=== PATIENT | female | born 1955 | race Two or more races ===

== ENCOUNTER → 2022-11-23 | Outpatient (CLI) | payer OTHER ==
[2022-11-23 09:46] LABS: Basophils # (auto) 0 10 ^3/uL (0-0.2); Basophils % (auto) 0.2 % (0.0-2.0); Eosinophils # (auto) 0 10 ^3/uL (0-0.8); Hematocrit 40.6 % (36.0-46.0); Hemoglobin 13.4 g/dL (12.2-16.2); Lymphocytes # (auto) 1.3 10 ^3/uL (0.4-5.4); Lymphocytes % (auto) 7.8 % (10.0-50.0); Mean Corpuscular Hemoglobin 30.2 pg (28.0-32.0); Mean Corpuscular Volume 91.4 fL (80.0-100.0); Monocytes # (auto) 0.3 10 ^3/uL (0-1.3); Monocytes % (auto) 1.8 % (0.0-12.0); Neutrophils # (auto) 15.4 10 ^3/uL (1.6-8.6); Neutrophils % (auto) 90.2 % (37.0-80.0); Red Blood Cells 4.44 10^6/uL (4.0-5.20); Red Cell Distribution Width 13.6 % (11.8-14.3)
[2022-11-23 10:04] LABS: Urine Bacteria NONE SEEN /hpf (None Seen); Urine Blood Negative /uL (Negative); Urine Hyaline Cast FEW /lpf (0 - 2); Urine Specific Gravity 1.018 (1.001-1.035); Urine WBC 2 /hpf (0 - 5)
[2022-11-23 10:33] LABS: Anion Gap 6 (5-15); Carbon Dioxide 22 mmol/L (21-32); Chloride 104 mmol/L (98-107); Potassium 4.6 mmol/L (3.5-5.1); Sodium 132 mmol/L (136-145)
[2022-11-23 10:42] LABS: Alanine Aminotransferase 23 U/L (13-56); Albumin 3.5 g/dL (3.4-5.0); Alkaline Phosphatase 99 U/L (45-117); Aspartate Aminotransferase 18 U/L (15-37); BUN/Creatinine Ratio 33.9 (10.0-20.0); Bilirubin, Direct < 0.1 mg/dL (0-0.2); Bilirubin, Total 0.3 mg/dL (0.2-1.0); Blood Urea Nitrogen 40 mg/dL (7-18); Calcium 9.8 mg/dL (8.5-10.1); Cholesterol 227 mg/dL (< 200); GFR African American 59 mL/min; GFR Non-African American 48 mL/min; Glucose 265 mg/dL (74-106); HDL Cholesterol 42 mg/dL (40-59); LDL Cholesterol 151 mg/dL (< 100); Total Protein 8.6 g/dL (6.4-8.2); Triglycerides 184 mg/dL (< 150)
[2022-11-23 10:46] LABS: % Iron Saturation 25.9 % (15-50)
== END | disposition home or self-care (01) ==
LOC: LAB 09:15
PROVIDERS: ATTEND Family Medicine
DX: Z00.00 Encounter for general adult medical examination without abnormal findings (principal); E78.2 Mixed hyperlipidemia; E55.9 Vitamin D deficiency, unspecified; E11.65 Type 2 diabetes mellitus with hyperglycemia; R79.89 Other specified abnormal findings of blood chemistry; R79.9 Abnormal finding of blood chemistry, unspecified
CPT/HCPCS: 36415; 80053; 80061; 80076; 81001; 82306; 82607; 83036; 83540; 83550; 84443; 85025

== ENCOUNTER 2023-01-29 21:54 | Inpatient (IN) | payer OTHER ==
[~2023-01-29] VITALS: Ht 165.1 cm; Wt 65.0 kg
[2023-01-29 22:32] LABS: Basophils # (auto) 0.1 10 ^3/uL (0-0.2); Basophils % (auto) 0.9 % (0.0-2.0); Eosinophils # (auto) 0.4 10 ^3/uL (0-0.8); Eosinophils % (auto) 4.1 % (0.0-7.0); Hematocrit 41.6 % (36.0-46.0); Hemoglobin 14.1 g/dL (12.2-16.2); Lymphocytes # (auto) 2.7 10 ^3/uL (0.4-5.4); Lymphocytes % (auto) 29.2 % (10.0-50.0); Mean Corpuscular Hemoglobin 30.7 pg (28.0-32.0); Mean Corpuscular Volume 90.4 fL (80.0-100.0); Monocytes # (auto) 0.5 10 ^3/uL (0-1.3); Monocytes % (auto) 5.4 % (0.0-12.0); Neutrophils # (auto) 5.6 10 ^3/uL (1.6-8.6); Neutrophils % (auto) 60.4 % (37.0-80.0); Nucleated Red Blood Cells % 0.1 %; Red Blood Cells 4.61 10^6/uL (4.0-5.20); Red Cell Distribution Width 14.3 % (11.8-14.3); White Blood Cell 9.3 10^3/uL (4.4-10.8)
[2023-01-29 22:46] LABS: INR 0.95 (0.9-1.15); Partial Thromboplastin Time 27.3 sec (24.6-33.4)
[2023-01-29 22:52] LABS: Albumin 3.6 g/dL (3.4-5.0); Calcium 8.5 mg/dL (8.5-10.1); Magnesium 2.1 mg/dL (1.6-2.6); Potassium 3.7 mmol/L (3.5-5.1)
[2023-01-29 22:56] LABS: BUN/Creatinine Ratio 31.6 (10.0-20.0); Bilirubin, Total 0.4 mg/dL (0.2-1.0); Total Protein 8.1 g/dL (6.4-8.2)
[2023-01-29] MEDS ORDERED: LABETALOL HCL 5 MG/ML 4ML SYRINGE IV ONE (23:45)
[2023-01-29] MEDS ORDERED: ASPirin 325 MG TAB PO ONE (23:45)
[2023-01-30] VITALS (7 sets, daily range): BP systolic 119–163; BP diastolic 62–78
[2023-01-30] MEDS ORDERED: LABETALOL HCL 5 MG/ML 4ML SYRINGE IV ONE (00:45)
[2023-01-30] MEDS ORDERED: ACETAMINOPHEN 325 MG TAB PO PRN (01:15)
[2023-01-30] MEDS ORDERED: MORPHINE SULFATE INJ 2 MG/ml SYRG IV PRN (01:15)
[2023-01-30] MEDS ORDERED: DEXTROSE (50%) 50ML SYRG IV PRN (01:15)
[2023-01-30] MEDS ORDERED: ONDANSETRON HCL 4 MG/2 ML VIAL IV PRN (01:15)
[2023-01-30] MEDS ORDERED: NITROGLYCERIN 0.4 MG SL TAB SL PRN (01:15)
[2023-01-30] MEDS: ACCU-CHEK COMFORT CURVE STRIP VI SCH ×3 (06:55→16:05)
[2023-01-30] MEDS: InsuLIN REG 1unit/0.01ml Soln (100units/ml) SC SCH ×3 (07:05→16:03)
[2023-01-30] MEDS ORDERED: ERGOCALCIFEROL 50,000 UNIT(1.25MG) CAP PO SCH (08:45)
[2023-01-30] MEDS ORDERED: PANTOPRAZOLE 40 MG TAB PO SCH (10:00)
[2023-01-30] MEDS ORDERED: ASPirin 81 mg TAB PO SCH ×2 (10:00)
[2023-01-30] MEDS ORDERED: CARVEDILOL 12.5 MG TAB PO SCH (10:00)
[2023-01-30] MEDS ORDERED: cloNIDine HCL 0.1 MG TAB PO SCH (10:00)
[2023-01-30] MEDS ORDERED: ENOXAPARIN SOD 40 MG/0.4 ML SYRINGE SC SCH (10:00)
[2023-01-30] MEDS ORDERED: GABA-1250 PO (11:50)
[2023-01-30] MEDS ORDERED: CLON0.1T PO (11:50)
[2023-01-30] MEDS ORDERED: ATOR10TA52 PO (13:05)
[2023-01-30] MEDS ORDERED: IODIXANOL 320MG/ML 100ML BTL IV ONE (13:32)
[2023-01-30] MEDS ORDERED: LIDOCAINE 2%HCL (LOCAL ANESTH.) INJ 20ML MDV ONE (13:32)
[2023-01-30] MEDS ORDERED: HEPARIN SODIUM (PORCINE) 5000 UNITS/ML 1ML VIAL ONE (13:48)
[2023-01-30] MEDS ORDERED: VERAPAMIL 2.5MG/ML INJ 2ML VIAL IV ONE (13:48)
[2023-01-30] MEDS ORDERED: fentaNYL CITRATE 100 MCG/2 ML VL ONE (13:48)
[2023-01-30] MEDS ORDERED: ANGIOMAX 250 MG VIAL IV ONE (13:48)
[2023-01-30] MEDS ORDERED: SODIUM CHL 0.9% 0 ML ONE (13:49)
[2023-01-30] MEDS ORDERED: MIDAZOLAM HCL 2MG/2ML 2ml VIAL (1mg/ml) ONE (13:49)
[2023-01-30] MEDS ORDERED: ASPI-325 PO (14:58)
[2023-01-30] MEDS ORDERED: ERGO1CAP23 PO (14:58)
[2023-01-30] MEDS ORDERED: ATOR20TA50 PO (14:58)
[2023-01-30] MEDS ORDERED: CAR125T PO (14:58)
[2023-01-30] MEDS ORDERED: LOSA25TA15 PO (14:58)
[2023-01-30 17:56] LABS: Alcohol, Urine < 3.0 mg/dL (0-10); Amphetamine Screen, Urine NEGATIVE (NEGATIVE); Barbiturate Scree,Urine NEGATIVE (NEGATIVE); Benzodiazephine Screen, Urine POSITIVE (NEGATIVE); Cannabinoid Screen, Urine NEGATIVE (NEGATIVE); Cocaine Screen, Urine NEGATIVE (NEGATIVE); Opiate Scree,Urine NEGATIVE (NEGATIVE); Phencyclidine Screen, Urine NEGATIVE (NEGATIVE)
[2023-01-30 18:10] LABS: Urine Bacteria FEW /hpf (None Seen); Urine Blood Negative /uL (Negative); Urine Specific Gravity 1.021 (1.001-1.035); Urine WBC 11 /hpf (0 - 5)
[2023-01-30] MEDS ORDERED: ATORVASTATIN 20 MG TAB PO SCH ×2 (22:00)
== END 2023-01-30 19:10 | disposition home or self-care (01) | DRG 281 ==
LOC: ER 21:58 → TELE 01-30 01:28 → TELE-CENTR 01-30 11:45
PROVIDERS: ADMIT Nurse Practitioner; ATTEND Internal Medicine
PROC: 4A023N7 Measurement of Cardiac Sampling and Pressure, Left Heart, Percutaneous Approach (ICD-10-PCS; principal; 2023-01-30)
PROC: B211YZZ Fluoroscopy of Multiple Coronary Arteries using Other Contrast (ICD-10-PCS; 2023-01-30)
DX: I21.4 Non-ST elevation (NSTEMI) myocardial infarction (principal); I16.1 Hypertensive emergency; I50.30 Unspecified diastolic (congestive) heart failure; E11.9 Type 2 diabetes mellitus without complications; I25.10 Atherosclerotic heart disease of native coronary artery without angina pectoris; I11.0 Hypertensive heart disease with heart failure; Z79.899 Other long term (current) drug therapy; Z86.73 Personal history of transient ischemic attack (TIA), and cerebral infarction without residual deficits; Z91.148 Patient's other noncompliance with medication regimen for other reason; Z91.199 Patient's noncompliance with other medical treatment and regimen due to unspecified reason
CPT/HCPCS: 36415; 71045; 80053; 80307; 81001; 82043; 82962; 83735; 83880; 84484; 85025; 85610; 85730; 93005; 93306; 96374; 96375; 96376; 99152; 99291; G0378; J1815; J2250; J2405; J3490; Q9967

== ENCOUNTER → 2023-02-14 | Outpatient (CLI) | payer OTHER ==
[~2023-02-14] MED LIST: ASPI-325 PO; ATOR20TA50 PO; CAR125T PO; ERGO1CAP23 PO; LOSA25TA15 PO
[2023-02-14 11:48] LABS: Urine WBC None Seen /hpf (0 - 5)
[2023-02-14 12:03] LABS: Basophils # (auto) 0.1 10 ^3/uL (0-0.2); Basophils % (auto) 0.6 % (0.0-2.0); Eosinophils # (auto) 0.3 10 ^3/uL (0-0.8); Eosinophils % (auto) 2.4 % (0.0-7.0); Hematocrit 35.4 % (36.0-46.0); Hemoglobin 11.6 g/dL (12.2-16.2); Lymphocytes # (auto) 2.9 10 ^3/uL (0.4-5.4); Lymphocytes % (auto) 22.1 % (10.0-50.0); Mean Corpuscular Hemoglobin 30.2 pg (28.0-32.0); Mean Corpuscular Hgb Conc. 32.8 g/dL (32.0-36.0); Monocytes # (auto) 0.6 10 ^3/uL (0-1.3); Monocytes % (auto) 4.6 % (0.0-12.0); Neutrophils # (auto) 9.3 10 ^3/uL (1.6-8.6); Neutrophils % (auto) 70.3 % (37.0-80.0); Red Blood Cells 3.85 10^6/uL (4.0-5.20); Red Cell Distribution Width 14.1 % (11.8-14.3); White Blood Cell 13.2 10^3/uL (4.4-10.8)
[2023-02-14 12:32] LABS: Folate (Folic Acid) 10.05 ng/mL (5.38-24)
[2023-02-14 12:36] LABS: % Iron Saturation 22.9 % (15-50)
[2023-02-14 12:37] LABS: Albumin 3.2 g/dL (3.4-5.0); Calcium 8.2 mg/dL (8.5-10.1); Potassium 4.1 mmol/L (3.5-5.1); Uric Acid 6.6 mg/dL (2.6-6.0)
[2023-02-14 12:41] LABS: BUN/Creatinine Ratio 24.8 (10.0-20.0); Bilirubin, Total 0.4 mg/dL (0.2-1.0); Phosphorus 2.7 mg/dL (2.5-4.90); Total Protein 6.8 g/dL (6.4-8.2)
[2023-02-14 12:49] LABS: Urine Bacteria NONE SEEN /hpf (None Seen); Urine Blood Negative /uL (Negative); Urine Specific Gravity 1.005 (1.001-1.035)
== END | disposition home or self-care (01) ==
LOC: LAB 11:33
PROVIDERS: ATTEND Family Medicine
DX: I10 Essential (primary) hypertension (principal); E78.2 Mixed hyperlipidemia; E11.65 Type 2 diabetes mellitus with hyperglycemia; N28.9 Disorder of kidney and ureter, unspecified; M79.605 Pain in left leg; R29.6 Repeated falls
CPT/HCPCS: 36415; 80053; 80061; 80069; 81001; 82607; 82746; 83036; 83540; 83550; 84403; 84443; 84550; 85025; 87086

== ENCOUNTER → 2023-02-26 | Outpatient (CLI) | payer OTHER ==
[2023-02-26 16:13] LABS: Basophils # (auto) 0.1 10 ^3/uL (0-0.2); Basophils % (auto) 0.7 % (0.0-2.0); Eosinophils # (auto) 0.2 10 ^3/uL (0-0.8); Eosinophils % (auto) 1.7 % (0.0-7.0); Hematocrit 35.6 % (36.0-46.0); Hemoglobin 11.8 g/dL (12.2-16.2); Lymphocytes # (auto) 2.6 10 ^3/uL (0.4-5.4); Lymphocytes % (auto) 24.2 % (10.0-50.0); Mean Corpuscular Hemoglobin 30.6 pg (28.0-32.0); Mean Corpuscular Hgb Conc. 33.1 g/dL (32.0-36.0); Mean Corpuscular Volume 92.7 fL (80.0-100.0); Monocytes # (auto) 0.6 10 ^3/uL (0-1.3); Monocytes % (auto) 5.6 % (0.0-12.0); Neutrophils # (auto) 7.4 10 ^3/uL (1.6-8.6); Neutrophils % (auto) 67.8 % (37.0-80.0); Red Blood Cells 3.84 10^6/uL (4.0-5.20); White Blood Cell 10.9 10^3/uL (4.4-10.8)
[2023-02-26 16:20] LABS: Urine Bacteria NONE SEEN /hpf (None Seen); Urine Blood Negative /uL (Negative); Urine Specific Gravity 1.008 (1.001-1.035); Urine WBC 2 /hpf (0 - 5)
[2023-02-26 16:48] LABS: Albumin 3.5 g/dL (3.4-5.0); Calcium 8.7 mg/dL (8.5-10.1); Protein, Urine 68.6 mg/dL (0.0-11.9)
[2023-02-26 16:49] LABS: BUN/Creatinine Ratio 27.9 (10.0-20.0); Phosphorus 3.2 mg/dL (2.5-4.90)
== END | disposition home or self-care (01) ==
LOC: LAB 15:58
PROVIDERS: ATTEND Internal Medicine
DX: N18.30 Chronic kidney disease, stage 3 unspecified (principal); D63.1 Anemia in chronic kidney disease; M10.9 Gout, unspecified; E55.9 Vitamin D deficiency, unspecified; E11.21 Type 2 diabetes mellitus with diabetic nephropathy; N39.0 Urinary tract infection, site not specified; R80.9 Proteinuria, unspecified; E21.3 Hyperparathyroidism, unspecified
CPT/HCPCS: 36415; 80069; 81001; 82306; 82570; 83970; 84156; 84550; 85025

== ENCOUNTER → 2023-06-07 | Outpatient (CLI) | payer OTHER ==
[2023-06-07 12:39] LABS: Alanine Aminotransferase 17 U/L (7-40); Alkaline Phosphatase 86 U/L (46-116); Anion Gap 7 (5-15); Blood Urea Nitrogen 19 mg/dL (9-23); Calcium 9.4 mg/dL (8.5-10.1); Carbon Dioxide 25 mmol/L (20-30); Chloride 106 mmol/L (98-107); Glucose 138 mg/dL (74-106); Potassium 5.1 mmol/L (3.5-5.1); Sodium 138 mmol/L (136-145)
[2023-06-07 12:40] LABS: Albumin 4.5 g/dL (3.2-4.8); Aspartate Aminotransferase 19 U/L (13-40); Bilirubin, Total 0.5 mg/dL (0.2-1.0); Total Protein 7.7 g/dL (5.7-8.2)
== END | disposition home or self-care (01) ==
LOC: LAB 11:15
PROVIDERS: ATTEND Internal Medicine
DX: I10 Essential (primary) hypertension (principal); I25.10 Atherosclerotic heart disease of native coronary artery without angina pectoris; Z86.73 Personal history of transient ischemic attack (TIA), and cerebral infarction without residual deficits
CPT/HCPCS: 36415; 80053

== ENCOUNTER 2023-06-25 13:29 | Emergency (ER) | payer OTHER | END 2023-06-25 14:12 | disposition left against medical advice (07) | LOC: ER 13:29 | DX: I10 Essential (primary) hypertension (principal); Z53.21 Procedure and treatment not carried out due to patient leaving prior to being seen by health care provider ==

== ENCOUNTER 2023-07-09 08:22 | Inpatient (IN) | payer OTHER ==
[~2023-07-09] VITALS: Ht 157.5 cm; Wt 68.0 kg
[2023-07-09 08:48] LABS: Basophils # (auto) 0.1 10 ^3/uL (0-0.2); Basophils % (auto) 0.8 % (0.0-2.0); Eosinophils # (auto) 0.1 10 ^3/uL (0-0.8); Eosinophils % (auto) 0.6 % (0.0-7.0); Hematocrit 36.1 % (36.0-46.0); Hemoglobin 11.8 g/dL (12.2-16.2); Lymphocytes # (auto) 1.9 10 ^3/uL (0.4-5.4); Lymphocytes % (auto) 16.4 % (10.0-50.0); Mean Corpuscular Hemoglobin 30.1 pg (28.0-32.0); Mean Corpuscular Hgb Conc. 32.7 g/dL (32.0-36.0); Mean Corpuscular Volume 91.8 fL (80.0-100.0); Monocytes # (auto) 0.8 10 ^3/uL (0-1.3); Monocytes % (auto) 7.1 % (0.0-12.0); Neutrophils # (auto) 8.6 10 ^3/uL (1.6-8.6); Neutrophils % (auto) 75.1 % (37.0-80.0); Red Blood Cells 3.94 10^6/uL (4.0-5.20); Red Cell Distribution Width 13.6 % (11.8-14.3); White Blood Cell 11.5 10^3/uL (4.4-10.8)
[2023-07-09 09:05] LABS: INR 1.01 (0.9-1.15); Partial Thromboplastin Time 30.3 SEC (24.5-34.5); Prothrombin Time 10.6 sec (9.3-11.8)
[2023-07-09 09:20] LABS: Alanine Aminotransferase 15 U/L (7-40); Albumin 4.1 g/dL (3.2-4.8); Alkaline Phosphatase 84 U/L (46-116); Anion Gap 5 (5-15); Aspartate Aminotransferase 14 U/L (13-40); BUN/Creatinine Ratio 21.6 (10.0-20.0); Bilirubin, Total 0.6 mg/dL (0.2-1.0); Blood Urea Nitrogen 29 mg/dL (9-23); Carbon Dioxide 24 mmol/L (20-30); Chloride 105 mmol/L (98-107); Glucose 217 mg/dL (74-106); Potassium 4.4 mmol/L (3.5-5.1); Sodium 134 mmol/L (136-145); Total Protein 6.8 g/dL (5.7-8.2)
[2023-07-09 09:21] LABS: Urine Bacteria NONE SEEN /hpf (None Seen); Urine Blood Negative /uL (Negative); Urine Clarity Clear (Clear); Urine Color Yellow (Yellow); Urine Protein, UAD 1+ (Negative); Urine Specific Gravity 1.015 (1.001-1.035); Urine Urobilinogen Normal (Negative); Urine WBC 1 /hpf (0 - 5)
[2023-07-09] MEDS ORDERED: GABA-1250 PO (12:42)
[2023-07-09] MEDS ORDERED: RANO500T3 PO (12:42)
[2023-07-09] MEDS ORDERED: MORPHINE SULFATE INJ 2 MG/ml SYRG IV PRN (12:45)
[2023-07-09] MEDS ORDERED: NITROGLYCERIN 0.4 MG SL TAB SL PRN (12:45)
[2023-07-09] MEDS ORDERED: ACETAMINOPHEN 325 MG TAB PO PRN (12:45)
[2023-07-09] MEDS ORDERED: DEXTROSE (50%) 50ML SYRG IV PRN (12:45)
[2023-07-09] MEDS ORDERED: ERGOCALCIFEROL 50,000 UNIT(1.25MG) CAP PO SCH (12:45)
[2023-07-09] MEDS ORDERED: LORazepam 2MG/ML-1ML VIAL IV PRN (19:15)
[2023-07-09 21:47] LABS: Erythrocyte Sedimentation Rate 43 mm/hr (0-20)
[2023-07-09] MEDS ORDERED: ATORVASTATIN 20 MG TAB PO SCH (22:00)
[2023-07-09] MEDS ORDERED: CARVEDILOL 12.5 MG TAB PO SCH (22:00)
[2023-07-10 05:40] VITALS: PULSE 82; RESP 18; O2SAT 99
[2023-07-10] MEDS: ACCU-CHEK COMFORT CURVE STRIP VI SCH ×3 (05:44→06:54)
[2023-07-10] MEDS: InsuLIN REG 1unit/0.01ml Soln (100units/ml) SC SCH ×3 (05:44→06:57)
[2023-07-10] MEDS: SODIUM CHLORIDE 0.9% 1,000 ML IV SCH ×2 (06:14→06:15)
[2023-07-10 07:09] LABS: Basophils # (auto) 0.1 10 ^3/uL (0-0.2); Basophils % (auto) 0.6 % (0.0-2.0); Eosinophils # (auto) 0 10 ^3/uL (0-0.8); Eosinophils % (auto) 0.1 % (0.0-7.0); Hematocrit 36.5 % (36.0-46.0); Hemoglobin 12.3 g/dL (12.2-16.2); Lymphocytes # (auto) 2.2 10 ^3/uL (0.4-5.4); Lymphocytes % (auto) 15.4 % (10.0-50.0); Mean Corpuscular Hemoglobin 30.8 pg (28.0-32.0); Mean Corpuscular Hgb Conc. 33.7 g/dL (32.0-36.0); Mean Corpuscular Volume 91.5 fL (80.0-100.0); Neutrophils # (auto) 10.8 10 ^3/uL (1.6-8.6); Neutrophils % (auto) 76.9 % (37.0-80.0); Red Blood Cells 3.99 10^6/uL (4.0-5.20); Red Cell Distribution Width 13.2 % (11.8-14.3)
[2023-07-10 07:23] LABS: Alanine Aminotransferase 10 U/L (7-40); Albumin 4.6 g/dL (3.2-4.8); Alkaline Phosphatase 95 U/L (46-116); Anion Gap 10 (5-15); Aspartate Aminotransferase 14 U/L (13-40); BUN/Creatinine Ratio 16.3 (10.0-20.0); Bilirubin, Total 0.7 mg/dL (0.2-1.0); Blood Urea Nitrogen 21 mg/dL (9-23); Calcium 9.5 mg/dL (8.7-10.4); Carbon Dioxide 23 mmol/L (20-30); Chloride 102 mmol/L (98-107); Glucose 187 mg/dL (74-106); Potassium 3.9 mmol/L (3.5-5.1); Sodium 135 mmol/L (136-145)
[2023-07-10 07:24] LABS: Total Protein 8.1 g/dL (5.7-8.2)
[2023-07-10] MEDS ORDERED: ASPirin-EC 81 mg tab PO SCH (10:00)
[2023-07-10] MEDS ORDERED: ENOXAPARIN SOD 40 MG/0.4 ML SYRINGE SC SCH (10:00)
[2023-07-10] MEDS ORDERED: LOSARTAN POTASSIUM 25 MG TAB PO SCH (10:00)
[2023-07-10 16:46] VITALS: BP 184/68; PULSE 82; RESP 18; TEMP 98.7; O2SAT 100
== END 2023-07-10 16:51 | disposition home or self-care (01) | DRG 69 ==
LOC: ER 08:22 → TELE 12:40
PROVIDERS: ADMIT Nurse Practitioner Family; ATTEND Internal Medicine
DX: G45.9 Transient cerebral ischemic attack, unspecified (principal); N17.9 Acute kidney failure, unspecified; I69.351 Hemiplegia and hemiparesis following cerebral infarction affecting right dominant side; E11.9 Type 2 diabetes mellitus without complications; I10 Essential (primary) hypertension; Z79.82 Long term (current) use of aspirin; Z79.899 Other long term (current) drug therapy; Z90.710 Acquired absence of both cervix and uterus
CPT/HCPCS: 36415; 70450; 70545; 70551; 71045; 80053; 81001; 82962; 83036; 84484; 85025; 85610; 85652; 85730; 86141; 93005; 93886; G0378; J1815

== ENCOUNTER → 2023-08-07 | Outpatient (CLI) | payer OTHER ==
[~2023-08-07] MED LIST changes: +GABA-1250 PO; +RANO500T3 PO
[2023-08-07 11:01] LABS: INR 1.04 (0.9-1.15); Prothrombin Time 10.9 sec (9.3-11.8)
[2023-08-07 11:16] LABS: Urine Blood Negative /uL (Negative); Urine Clarity Clear (Clear); Urine Color Yellow (Yellow); Urine Protein, UAD 1+ (Negative); Urine Specific Gravity 1.018 (1.001-1.035); Urine Urobilinogen Normal (Negative)
[2023-08-07 11:24] LABS: Alanine Aminotransferase 12 U/L (7-40); Albumin 4.8 g/dL (3.2-4.8); Alkaline Phosphatase 97 U/L (46-116); Anion Gap 9 (5-15); Aspartate Aminotransferase 19 U/L (13-40); BUN/Creatinine Ratio 14.9 (10.0-20.0); Bilirubin, Total 0.5 mg/dL (0.2-1.0); Blood Urea Nitrogen 21 mg/dL (9-23); Carbon Dioxide 25 mmol/L (20-30); Chloride 104 mmol/L (98-107); Glucose 119 mg/dL (74-106); Potassium 4.5 mmol/L (3.5-5.1); Sodium 138 mmol/L (136-145); Total Protein 8.5 g/dL (5.7-8.2)
[2023-08-07 11:58] LABS: % Iron Saturation 35.3 % (15-50)
== END | disposition home or self-care (01) ==
LOC: LAB 09:45
PROVIDERS: ATTEND Family Medicine
DX: E11.65 Type 2 diabetes mellitus with hyperglycemia (principal); E11.43 Type 2 diabetes mellitus with diabetic autonomic (poly)neuropathy; E11.9 Type 2 diabetes mellitus without complications
CPT/HCPCS: 36415; 80053; 81003; 83036; 83540; 83550; 85610; 85730

== ENCOUNTER 2024-03-11 21:02 | Inpatient (IN) | payer OTHER ==
[~2024-03-11] VITALS: Ht 157.5 cm; Wt 66.0 kg
[~2024-03-11 21:02] MED LIST changes: -CAR125T PO; +CARV-216 PO; +LOSA-533 PO; -LOSA25TA15 PO
[2024-03-12 02:15] VITALS: BP 149/72; PULSE 63; RESP 18; TEMP 97.5; O2SAT 98
[2024-03-12 02:46] VITALS: BP 149/72; PULSE 63; RESP 18; TEMP 97.5; O2SAT 98
[2024-03-12 03:33] LABS: Basophils # (auto) 0.1 10 ^3/uL (0-0.2); Basophils % (auto) 0.8 % (0.0-2.0); Eosinophils # (auto) 0.4 10 ^3/uL (0-0.8); Eosinophils % (auto) 3.4 % (0.0-7.0); Hematocrit 36.3 % (36.0-46.0); Hemoglobin 12.2 g/dL (12.2-16.2); Lymphocytes # (auto) 2.9 10 ^3/uL (0.4-5.4); Lymphocytes % (auto) 27.7 % (10.0-50.0); Mean Corpuscular Hemoglobin 30.5 pg (28.0-32.0); Mean Corpuscular Hgb Conc. 33.6 g/dL (32.0-36.0); Mean Corpuscular Volume 90.9 fL (80.0-100.0); Monocytes # (auto) 0.6 10 ^3/uL (0-1.3); Monocytes % (auto) 5.6 % (0.0-12.0); Neutrophils # (auto) 6.5 10 ^3/uL (1.6-8.6); Neutrophils % (auto) 62.5 % (37.0-80.0); Nucleated Red Blood Cells % 0.1 %; Red Blood Cells 3.99 10^6/uL (4.0-5.20); Red Cell Distribution Width 14.3 % (11.8-14.3); White Blood Cell 10.4 10^3/uL (4.4-10.8)
[2024-03-12 03:49] LABS: Alanine Aminotransferase 20 U/L (7-40); Alkaline Phosphatase 90 U/L (46-116); Anion Gap 7 (5-15); Aspartate Aminotransferase 16 U/L (13-40); BUN/Creatinine Ratio 22.1 (10.0-20.0); Bilirubin, Total 0.4 mg/dL (0.2-1.0); Blood Urea Nitrogen 25 mg/dL (9-23); Calcium 9.9 mg/dL (8.7-10.4); Carbon Dioxide 24 mmol/L (20-30); Chloride 107 mmol/L (98-107); Glucose 110 mg/dL (74-106); Potassium 3.9 mmol/L (3.5-5.1); Sodium 138 mmol/L (136-145)
[2024-03-12 05:00] VITALS: BP 156/80; PULSE 72; RESP 17; TEMP 97.8; O2SAT 95
[2024-03-12] MEDS ORDERED: ONDANSETRON HCL 4 MG/2 ML VIAL IV PRN (06:00)
[2024-03-12] MEDS ORDERED: MORPHINE SULFATE INJ 2 MG/ml SYRG IV PRN (06:00)
[2024-03-12] MEDS ORDERED: NITROGLYCERIN 0.4 MG SL TAB SL PRN (06:00)
[2024-03-12] MEDS ORDERED: ACETAMINOPHEN 325 MG TAB PO PRN (06:00)
[2024-03-12] MEDS ORDERED: hydrALAZINE HCL 20 MG/ML VL IV PRN (06:15)
[2024-03-12] MEDS ORDERED: ASPI-543 PO (06:31)
[2024-03-12 08:00] VITALS: BP 160/60; PULSE 57; PULSE 71; RESP 17; TEMP 97.7; O2SAT 97
[2024-03-12] MEDS: LOSARTAN POTASSIUM 25 MG TAB PO SCH (08:51)
[2024-03-12] MEDS: CARVEDILOL 12.5 MG TAB PO SCH (08:52)
[2024-03-12] MEDS: ISOSORBIDE MONONITRATE ER 60 MG TAB PO SCH (08:52)
[2024-03-12] MEDS: ASPirin 81 mg TAB PO SCH (08:53)
[2024-03-12] MEDS: ENOXAPARIN SOD 30 MG/0.3 ML SYRINGE SC SCH (08:53)
[2024-03-12] MEDS: PANTOPRAZOLE 40 MG TAB PO ONE (08:54)
[2024-03-12 09:31] LABS: Amphetamine Screen, Urine Neg (NEGATIVE)
[2024-03-12 09:32] LABS: Barbiturate Scree,Urine Neg (NEGATIVE); Benzodiazephine Screen, Urine Neg (NEGATIVE); Cocaine Screen, Urine Neg (NEGATIVE); Opiate Scree,Urine Neg (NEGATIVE)
[2024-03-12 09:33] LABS: Cannabinoid Screen, Urine Neg (NEGATIVE); Phencyclidine Screen, Urine Neg (NEGATIVE)
[2024-03-12 11:12] LABS: INR 1.04 (0.9-1.15)
[2024-03-12] MEDS: LOSARTAN POTASSIUM 50 MG TAB PO ONE (12:53)
[2024-03-12 12:55] VITALS: BP 148/61; PULSE 56; RESP 18; TEMP 98.6; O2SAT 96
[2024-03-12] MEDS ORDERED: LOSA-534 PO (15:12)
[2024-03-12] MEDS ORDERED: ATORVASTATIN 20 MG TAB PO SCH (22:00)
[2024-03-13] MEDS ORDERED: PANTOPRAZOLE 40 MG TAB PO SCH (06:00)
[2024-03-13] MEDS ORDERED: LOSARTAN POTASSIUM 25 MG TAB PO SCH (10:00)
== END 2024-03-12 13:45 | disposition home or self-care (01) | DRG 305 ==
LOC: TELE-WESTW 03-12 02:05
PROVIDERS: ADMIT Internal Medicine; ATTEND Emergency Medicine
DX: I16.0 Hypertensive urgency (principal); E11.9 Type 2 diabetes mellitus without complications; I10 Essential (primary) hypertension; Z86.73 Personal history of transient ischemic attack (TIA), and cerebral infarction without residual deficits; Z90.710 Acquired absence of both cervix and uterus
CPT/HCPCS: 36415; 80053; 80307; 82306; 82607; 83036; 84443; 84484; 85025; 85610; 85730; 93306; G0378

== ENCOUNTER → 2024-03-26 | Outpatient (CLI) | payer OTHER ==
[~2024-03-26] MED LIST changes: -LOSA-533 PO; +LOSA-534 PO
[2024-03-26 12:01] LABS: Anion Gap 7 (5-15); Carbon Dioxide 26 mmol/L (20-30); Chloride 103 mmol/L (98-107); Potassium 4.9 mmol/L (3.5-5.1); Sodium 136 mmol/L (136-145)
[2024-03-26 12:02] LABS: Creatinine, Urine 224.22 mg/dL (30.0-125.0)
[2024-03-26 12:03] LABS: Calcium 9.8 mg/dL (8.7-10.4)
[2024-03-26 12:08] LABS: BUN/Creatinine Ratio 22.4 (10.0-20.0); Blood Urea Nitrogen 32 mg/dL (9-23); Glucose 96 mg/dL (74-106)
== END | disposition home or self-care (01) ==
LOC: LAB 10:54
PROVIDERS: ATTEND Family Medicine
DX: E11.9 Type 2 diabetes mellitus without complications (principal)
CPT/HCPCS: 36415; 80048; 82043; 82570

== ENCOUNTER → 2024-05-29 | Outpatient (CLI) | payer OTHER ==
[2024-05-29 10:37] LABS: Urine Bacteria None Seen /hpf (None Seen)
[2024-05-29 10:40] LABS: Basophils # (auto) 0 10 ^3/uL (0-0.2); Basophils % (auto) 0.4 % (0.0-2.0); Eosinophils # (auto) 0.2 10 ^3/uL (0-0.8); Eosinophils % (auto) 2.1 % (0.0-7.0); Hemoglobin 10.3 g/dL (12.2-16.2); Lymphocytes # (auto) 3.3 10 ^3/uL (0.4-5.4); Lymphocytes % (auto) 33.3 % (10.0-50.0); Mean Corpuscular Hemoglobin 32.6 pg (28.0-32.0); Mean Corpuscular Hgb Conc. 34.3 g/dL (32.0-36.0); Mean Corpuscular Volume 95.2 fL (80.0-100.0); Monocytes # (auto) 0.5 10 ^3/uL (0-1.3); Monocytes % (auto) 5.5 % (0.0-12.0); Neutrophils # (auto) 5.8 10 ^3/uL (1.6-8.6); Neutrophils % (auto) 58.7 % (37.0-80.0); Platelet Count (auto) 430 10^3/uL (140-450); Red Blood Cells 3.15 10^6/uL (4.0-5.20); Red Cell Distribution Width 17.3 % (11.8-14.3); White Blood Cell 9.9 10^3/uL (4.4-10.8)
[2024-05-29 10:48] LABS: Urine Blood Negative /uL (Negative); Urine Clarity Clear (Clear); Urine Color Light-Yellow (Yellow); Urine Protein, UAD 1+ (Negative); Urine Urobilinogen Normal (Negative); Urine WBC 1 /hpf (0 - 5); Urine pH 5.5 (5.0-9.0)
[2024-05-29 11:01] LABS: % Iron Saturation 15.2 % (15-50)
[2024-05-29 11:02] LABS: Alanine Aminotransferase 19 U/L (7-40); Albumin 3.9 g/dL (3.2-4.8); Alkaline Phosphatase 114 U/L (46-116); Anion Gap 7 (5-15); Aspartate Aminotransferase 10 U/L (13-40); BUN/Creatinine Ratio 31.6 (10.0-20.0); Bilirubin, Total 0.4 mg/dL (0.2-1.0); Blood Urea Nitrogen 36 mg/dL (9-23); Calcium 9.1 mg/dL (8.7-10.4); Carbon Dioxide 23 mmol/L (20-31); Chloride 109 mmol/L (98-107); Cholesterol 236 mg/dL (< 200); Glucose 145 mg/dL (74-106); HDL Cholesterol 56 mg/dL (40-59); LDL Cholesterol 161 mg/dL (< 100); Potassium 4.2 mmol/L (3.5-5.1); Sodium 139 mmol/L (136-145); Total Protein 6.5 g/dL (5.7-8.2); Triglycerides 171 mg/dL (< 150)
[2024-05-29 11:04] LABS: Free T3 1.69 pg/mL (2.3-4.2); Free T4 (Free Thyroxine) 1.2 ng/dL (0.89-1.76); T3 Total 0.96 ng/mL (0.60-1.81)
== END | disposition home or self-care (01) ==
LOC: LAB 10:19
PROVIDERS: ATTEND Family Medicine
DX: Z12.11 Encounter for screening for malignant neoplasm of colon (principal); E11.43 Type 2 diabetes mellitus with diabetic autonomic (poly)neuropathy; I69.911 Memory deficit following unspecified cerebrovascular disease; Z79.4 Long term (current) use of insulin
CPT/HCPCS: 36415; 80053; 80061; 81001; 82043; 82270; 82306; 82607; 83036; 83540; 83550; 83735; 84439; 84443; 84480; 84481; 84550; 85025; 87086

== ENCOUNTER 2024-06-10 17:49 | Emergency (ER) | payer OTHER ==
[~2024-06-10] VITALS: Ht 160 cm; Wt 65.0 kg
[2024-06-10 19:15] LABS: Basophils # (auto) 0.1 10 ^3/uL (0-0.2); Basophils % (auto) 0.7 % (0.0-2.0); Eosinophils # (auto) 0.3 10 ^3/uL (0-0.8); Eosinophils % (auto) 2.9 % (0.0-7.0); Hematocrit 35.3 % (36.0-46.0); Hemoglobin 11.6 g/dL (12.2-16.2); Lymphocytes # (auto) 3.4 10 ^3/uL (0.4-5.4); Lymphocytes % (auto) 36.9 % (10.0-50.0); Mean Corpuscular Hemoglobin 30.8 pg (28.0-32.0); Mean Corpuscular Hgb Conc. 32.8 g/dL (32.0-36.0); Mean Corpuscular Volume 94.1 fL (80.0-100.0); Monocytes # (auto) 0.7 10 ^3/uL (0-1.3); Monocytes % (auto) 7.5 % (0.0-12.0); Neutrophils # (auto) 4.8 10 ^3/uL (1.6-8.6); Platelet Count (auto) 435 10^3/uL (140-450); Red Blood Cells 3.75 10^6/uL (4.0-5.20); Red Cell Distribution Width 15.8 % (11.8-14.3); White Blood Cell 9.2 10^3/uL (4.4-10.8)
[2024-06-10 19:44] LABS: Alanine Aminotransferase 25 U/L (7-40); Albumin 4.2 g/dL (3.2-4.8); Alkaline Phosphatase 150 U/L (46-116); Anion Gap 8 (5-15); Aspartate Aminotransferase 15 U/L (13-40); BUN/Creatinine Ratio 33.6 (10.0-20.0); Bilirubin, Total 0.2 mg/dL (0.2-1.0); Blood Urea Nitrogen 39 mg/dL (9-23); Calcium 9.7 mg/dL (8.7-10.4); Carbon Dioxide 25 mmol/L (20-31); Chloride 105 mmol/L (98-107); Glucose 150 mg/dL (74-106); Potassium 4.9 mmol/L (3.5-5.1); Sodium 138 mmol/L (136-145); Total Protein 6.9 g/dL (5.7-8.2)
[2024-06-10 23:22] VITALS: BP 215/87; PULSE 73; RESP 20; TEMP 97.7; O2SAT 98
[2024-06-10 23:50] LABS: Urine Bacteria None Seen /hpf (None Seen)
[2024-06-11 00:28] LABS: Urine Blood Negative /uL (Negative); Urine Clarity Clear (Clear); Urine Color Colorless (Yellow); Urine Protein, UAD 1+ (Negative); Urine Urobilinogen Normal (Negative); Urine WBC <1 /hpf (0 - 5); Urine pH 5.5 (5.0-9.0)
== END 2024-06-11 01:25 | disposition left against medical advice (07) ==
LOC: ER 17:49
DX: R07.89 Other chest pain (principal); R20.2 Paresthesia of skin; I10 Essential (primary) hypertension; Z53.21 Procedure and treatment not carried out due to patient leaving prior to being seen by health care provider; Z86.73 Personal history of transient ischemic attack (TIA), and cerebral infarction without residual deficits; Z90.710 Acquired absence of both cervix and uterus
CPT/HCPCS: 36415; 70450; 71046; 80053; 81001; 84484; 85025

== ENCOUNTER → 2024-07-28 | Outpatient (CLI) | payer OTHER ==
[2024-07-28 10:07] LABS: Urine Bacteria None Seen /hpf (None Seen)
[2024-07-28 10:11] LABS: Basophils # (auto) 0.1 10 ^3/uL (0-0.2); Eosinophils # (auto) 0.3 10 ^3/uL (0-0.8); Hemoglobin 12.6 g/dL (12.2-16.2); Lymphocytes # (auto) 3.2 10 ^3/uL (0.4-5.4); Monocytes # (auto) 0.5 10 ^3/uL (0-1.3); White Blood Cell 10.4 10^3/uL (4.4-10.8)
[2024-07-28 10:13] LABS: Basophils % (auto) 0.5 % (0.0-2.0); Eosinophils % (auto) 2.8 % (0.0-7.0); Hematocrit 38.6 % (36.0-46.0); Lymphocytes % (auto) 30.4 % (10.0-50.0); Mean Corpuscular Hemoglobin 29.6 pg (28.0-32.0); Mean Corpuscular Hgb Conc. 32.7 g/dL (32.0-36.0); Mean Corpuscular Volume 90.5 fL (80.0-100.0); Monocytes % (auto) 4.4 % (0.0-12.0); Neutrophils # (auto) 6.4 10 ^3/uL (1.6-8.6); Neutrophils % (auto) 61.9 % (37.0-80.0); Nucleated Red Blood Cells % 0.1 %; Platelet Count (auto) 474 10^3/uL (140-450); Red Blood Cells 4.26 10^6/uL (4.0-5.20); Red Cell Distribution Width 13.9 % (11.8-14.3)
[2024-07-28 10:34] LABS: Urine Blood Negative /uL (Negative); Urine Clarity Clear (Clear); Urine Color Yellow (Yellow); Urine Mucus FEW (None Seen); Urine Protein, UAD 2+ (Negative); Urine Specific Gravity 1.023 (1.001-1.035); Urine Urobilinogen Normal (Negative); Urine WBC 2 /hpf (0 - 5); Urine pH 5.5 (5.0-9.0)
[2024-07-28 10:44] LABS: Albumin 4.6 g/dL (3.2-4.8); Alkaline Phosphatase 111 U/L (46-116); Anion Gap 8 (5-15); Aspartate Aminotransferase 11 U/L (13-40); BUN/Creatinine Ratio 18.7 (10.0-20.0); Blood Urea Nitrogen 20 mg/dL (9-23); Calcium 10.6 mg/dL (8.7-10.4); Carbon Dioxide 27 mmol/L (20-31); Chloride 107 mmol/L (98-107); Glucose 117 mg/dL (74-106); LDL Cholesterol 84 mg/dL (< 100); Potassium 4.3 mmol/L (3.5-5.1); Sodium 142 mmol/L (136-145); Triglycerides 381 mg/dL (< 150)
[2024-07-28 10:45] LABS: % Iron Saturation 8.4 % (15-50); Bilirubin, Total 0.3 mg/dL (0.2-1.0); Cholesterol 187 mg/dL (< 200); HDL Cholesterol 34 mg/dL (40-59); Total Protein 7.8 g/dL (5.7-8.2)
[2024-07-28 10:51] LABS: Alanine Aminotransferase < 9 U/L (7-40)
[2024-07-28 12:47] LABS: Uric Acid 7.9 mg/dL (3.1-7.8)
== END | disposition home or self-care (01) ==
LOC: LAB 09:51
PROVIDERS: ATTEND Family Medicine
DX: Z13.31 Encounter for screening for depression (principal); M79.605 Pain in left leg; G57.93 Unspecified mononeuropathy of bilateral lower limbs
CPT/HCPCS: 36415; 80053; 80061; 81001; 82306; 82607; 82746; 83036; 83540; 83550; 84403; 84443; 84550; 85025

== ENCOUNTER 2025-02-16 09:50 | Inpatient (IN) | payer OTHER ==
[~2025-02-16] VITALS: Ht 162.6 cm; Wt 62.5 kg
--- NOTE | 2025-02-16 10:31 | ED.PDOC ---
HPI (NEURO) HPI Comments HPI: 69y F who presents to the ED for chief complaint of generalized weakness. - pt states she has been having generalized weakness for the past 1x month - pt states she woke up today and states she checked her BP and states it was systolic 190's - pt took her HTN medications but states she felt more weak than normal during the past 1 month and came to the ED - pt in the ED, otherwise is [id number] but denies any associated symptoms - pt states she recently saw PCP and was told he she blood clot and to come to the ED for further evaluation and to get US procedure - pt otherwise states she was prescribed some medication for her blood clot but states she has not taken it yet and states it is at residence - pt otherwise denies any shortness of breath or associated symptoms Past Medical history: HTN, DM, Hyperlipidemia, CVA x 1 Past Surgical history: hysterectomy Medications: unknown Allergies: nkda Social History: denies ETOH, denies tobacco use, denies drug use HPI: Poor Historian. REVIEW OF SYSTEMS: CONSTITUTIONAL: Denies acute: fever, diaphoresis, chills, HEAD: Denies acute: headache, photophobia Eyes: Denies acute: Double vision, vision loss, eye pain, eye discharge. EARS: Denies acute: tinnitus, hearing loss, ear discharge, ear pain, THROAT: Denies acute: sore throat, swelling, difficulty swallowing , pain with swallowing, change in voice. NECK: Denies acute: neck pain, neck swelling, stiff neck. HEART: Denies acute : chest pain, palpitations, LUNGS: Denies acute: SOB, wheezing, cough, hemoptysis ABDOMEN: Denies acute: abdominal pain, Nausea, Vomiting, diarrhea, melena , hematemesis, hematochezia SKIN: Denies acute: rash, redness, lesions, itchiness. EXTREMITIES: Denies acute: calf pain, numbness, tingling, weakness, denies pain in extremity. Denies acute: Low back pain. Neuro: Denies acute: focal neurological deficit, motor or sensory focal neurological deficit, tremors, seizure like activity, confusion, dizziness, change in mental status, loss of bowel or bladder function, cauda equina like symptoms. : Denies acute: dysuria, hematuria, flank pain, increase in urinary frequency. PSYCH: Denies acute: hallucination, suicidal ideation, homicidal ideation. FEMALE: Denies acute: abnormal vaginal bleeding, foul odor, unusual discharge. PHYSICAL EXAM: General: ----no----acute distress, awake and alert. Head: normocephalic, atraumatic. Neck: supple, trachea is midline, no swelling. Throat: Normal phonation. Eyes:, no erythema, no purulent discharge, no proptosis, no icterus. Heart: regular rate, regular rhythm, no significant murmur appreciated. Lungs: no apparent respiratory distress, Able to speak in full sentences. No wheezing, no rhonchi, no crackles. No stridors Clear to auscultation bilaterally. Abdomen: non tender to palpation, non distended, soft, no guarding, no rebound, + bowel sounds. Neuro: Awake, Alert, oriented to name, self, situation, follows commands GCS=15. Speech is normal. Skin: no petechia, no purpura, no cyanosis, non-pale, not jaundice. Lower extremities: --no - Pitting edema no deformity, no focal swelling, no calf TTP. Makes eye contact. moves all four extremities. Face: no apparent facial droop. ED COURSE: Chief Complaint: General Weakness Time Seen by MD: 10:37 Primary Care Provider: TADEO Hood Notes: Medications, Allergies Information Source: Patient Mode of Arrival: Wheelchair Past Medical History PAST MEDICAL HISTORY: CVA, HTN Surgical History: Hysterectomy BOX STACKER History: Denies all BOX STACKER Hx Family History Family History: Reviewed,noncontributory to illness Social History Smoker: Non-Smoker Alcohol: Denies ETOH Use Drugs: Denies Drug Use Lives In: Home Was a procedure done? Was a procedure done?: No Differential Diagnosis (SZ) Seizure: N/A General Weakness: Other (Includes but not limited to thyroid disease, encephalopathy, electrolyte abnormality, sepsis, infection, intracranial pathology, drug adverse effects, arrhythmia, kidney insufficiency, ACS, CVA, malignancy, anemia) Headache: Other (DDX include renal disease, thyroid disease, electrolyte abnormality, increased salt intake, medications non-compliance, undiagnosed HTN, Hypertensive crisis, hypertensive urgency., drug toxicity.) X-Ray, Labs, Meds, VS Vital Signs Date Time Temp Pulse Resp B/P (MAP) Pulse Ox O2 Delivery O2 Flow Rate FiO2 02/16/25 16:00 97.0 72 20 135/78 (97) 99 97.0 02/16/25 13:54 98.8 71 16 114/58 (76) 96 98.8 02/16/25 10:43 69 16 97 Room Air 02/16/25 10:43 97.9 69 16 111/78 (89) 97 97.9 02/16/25 10:14 77 02/16/25 10:05 98.6 78 18 132/87 (102) 98 98.6 Lab Test 02/16/25 13:06 02/16/25 11:37 02/16/25 10:30 02/16/25 10:08 Range/Units Lactic Acid Level 1.2 2.3 *H 0.4-2.0 mmol/L Troponin I High Sensitivity 27 26 </=34 ng/L White Blood Count 10.3 4.4-10.8 10^3/uL Red Blood Count 4.37 4.0-5.20 10^6/uL Hemoglobin 12.7 12.2-16.2 g/dL Hematocrit 37.7 36.0-46.0 % Mean Corpuscular Volume 86.2 80.0-100.0 fL Mean Corpuscular Hemoglobin 29.0 28.0-32.0 pg Mean Corpuscular Hemoglobin Concent 33.7 32.0-36.0 g/dL Red Cell Distribution Width 13.9 11.8-14.3 % Platelet Count 513 H 140-450 10^3/uL Mean Platelet Volume 8.0 6.9-10.8 fL Neutrophils (%) (Auto) 64.4 37.0-80.0 % Lymphocytes (%) (Auto) 28.6 10.0-50.0 % Monocytes (%) (Auto) 4.0 0.0-12.0 % Eosinophils (%) (Auto) 2.2 0.0-7.0 % Basophils (%) (Auto) 0.8 0.0-2.0 % Neutrophils # (Auto) 6.6 1.6-8.6 10 ^3/uL Lymphocytes # (Auto) 2.9 0.4-5.4 10 ^3/uL Monocytes # (Auto) 0.4 0-1.3 10 ^3/uL Eosinophils # (Auto) 0.2 0-0.8 10 ^3/uL Basophils # (Auto) 0.1 0-0.2 10 ^3/uL Nucleated Red Blood Cells 0.0 % Sodium Level 140 136-145 mmol/L Potassium Level 4.7 3.5-5.1 mmol/L Chloride Level 106 98-107 mmol/L Carbon Dioxide Level 22 20-31 mmol/L Anion Gap 12 5-15 Blood Urea Nitrogen 30 H 9-23 mg/dL Creatinine 1.13 H 0.550-1.02 mg/dL Glomerular Filtration Rate Calc 52 >90 mL/min BUN/Creatinine Ratio 26.5 H 10.0-20.0 Serum Glucose 171 H 74-106 mg/dL Calcium Level 10.6 H 8.7-10.4 mg/dL Total Bilirubin 0.2 0.2-1.0 mg/dL Aspartate Amino Transferase (AST) 16 <34 U/L Alanine Aminotransferase (ALT) 13 7-40 U/L Alkaline Phosphatase 95 46-116 U/L Total Protein 7.8 5.7-8.2 g/dL Albumin 4.6 3.2-4.8 g/dL Urine Color Light-yellow Yellow Urine Clarity Clear Clear Urine pH 5.5 5.0-9.0 Urine Specific [place] 1.015 1.001-1.035 Urine Protein 2+ H Negative Urine Ketones Negative Negative Urine Blood Trace H Negative /uL Urine Nitrite Negative Negative Urine Bilirubin Negative Negative Urine Urobilinogen Normal Negative mg/dL Urine Leukocyte Esterase Negative Negative /uL Urine RBC None seen 0 - 4 /hpf Urine Microscopic WBC 1 0-5 /HPF Urine Squamous Epithelial Cells Few <5 /hpf Urine Bacteria None seen None Seen /hpf Urine Hyaline Casts Few 0 - 2 /lpf Urine Mucus Few None Seen Urine Yeast (Budding) Occasional None Seen /hpf Urine Glucose Trace Normal mg/dL Current Medications Medications (Trade) Dose Ordered Sig/Juan Route Start Time Stop Time Status Last Admin Sodium Chloride 500 ml @ 500 mls/hr Q1H ONCE IV 02/16/25 12:15 02/16/25 13:14 DC 02/16/25 12:[address] [address] Ph: [phone] DIAGNOSTIC IMAGING Diagnostic Imaging Report : [id number] Signed PATIENT: RICHMOND NOWAK ACCT: [id number] UNIT: [id number] : 1955 LOC: ER ROOM / BED: / AGE / SEX: 69 / F ADM STATUS: REG ER SERVICE 1029 ORDERING PHYSICIAN: HERO BEE DO PROCEDURE(s): CXRP - CHEST PORTABLE REASON: GEN WEAK, HTN ORDER NUMBER(s): [id number], ACCESSION NUMBER(s): [id number] CHEST RADIOGRAPH Indication: GEN WEAK, HTN Technique: Single frontal view of the chest was obtained COMPARISON: XY CHEST PORTABLE on DOS: 07/09/23, XY CHEST PORTABLE on DOS: 01/29/23 FINDINGS: Lines and Tubes: None Lungs: Clear Pleura: No effusion. No pneumothorax. Cardiomediastinal contours: Unremarkable Bones: Unremarkable IMPRESSION: No acute disease. ATED BY: PAWEL DANIELSON MD DICTATED DATE/TIME: 02/16/25 1144 SIGNED BY: PAWEL DANIELSON MD SIGNED DATE/TIME: 02/16/25 1144 CC: Time of 1ST Reevaluation: 21:57 Reevaluation 1ST: Improved Patient Education/Counseling: Diagnosis, Treatment Family Education/Counseling: No Family Present Comments Patient presented with the above HPI.----hypertensive urgency and generalized weakness--workup was initiated. patient was found with the above mentioned diagnosis. the following medications were ordered: please refer to order lists of meds and tests obtained by myself Dr. Bee. Patient ED course and VS have been stabilized. Patient has been reassessed in the ED and remained in a stable condition. Pertinent incidental findings were discussed with the patient and/or family. Patient/family voices understanding and is agreeable with plan. Patient has been observed in the ED adequate length of time to insure improvement/stability. Escalation of care considered: Consideration of escalation to observation or admission Patient was found with abnormal EKG concerning for possible ischemia. Patient was ADMITTED to the medicine team for further evaluation and treatment of their presentation. All the reports of any imaging studies that were ordered by myself were reviewed by myself. Departure 1 Departure Time of Disposition: 13:56 Impression: Primary Impression: Poorly-controlled hypertension Additional Impressions: Abnormal EKG Generalized weakness Disposition: ADMITTED INPATIENT Admit to: Tele Condition: Guarded Discharged With: Self Critical Care Note Critical Care Time?: No Heart Score Heart Score: Heart Score Response (Comments) Value History Slightly Suspicious [address]-Deviation 2 Age >65 2 Risk Factors >3 or Hx ASHD 2 Troponin Normal limit 0 Total 6 I personally scribed for HERO BEE DO (SAMFARMI) on 02/16/25 at 10:31. Electronically submitted by Mari Abreu ([facility] I personally scribed for HERO BEE DO (SAMFARMI) on 02/16/25 at 10:37. Electronically submitted by Mari Abreu ([facility]). I personally scribed for HERO BEE DO (SAMFARMI) on 02/16/25 at 19:54. Electronically submitted by Mari Abreu ([facility]). HERO BEE DO Feb 16, 2025 10:31
--- NOTE | 2025-02-16 10:38 | ECG ---
[facility] Test Date: 2025-02-16 Test Time: 10:14:30 Pat Name: RICHMOND NOWAK Department: ER Room: 0278T Gender: F Corporate Wellness Coordinator: SAVANA : 1955 Requested By: HERO BEE Order Number: [id number] Reading MD: Michael Mckeon Measurements Intervals [place] Rate: 77 P: 27 ID: [id number] QRS: -9 QRSD: 84 T: 131 QT: 396 QTc: 449 Interpretive Statements Sinus rhythm LVH with secondary repolarization abnormality Electronically Signed On 02-17-2025 17:37:59 PDT by Michael Mckeon Please click the below link to view image of tracing.
[2025-02-16 10:53] LABS: Urine Bacteria None Seen /hpf (None Seen)
[2025-02-16 10:56] LABS: Basophils # (auto) 0.1 10 ^3/uL (0-0.2); Eosinophils # (auto) 0.2 10 ^3/uL (0-0.8); Hemoglobin 12.7 g/dL (12.2-16.2); Monocytes # (auto) 0.4 10 ^3/uL (0-1.3)
[2025-02-16 10:58] LABS: Basophils % (auto) 0.8 % (0.0-2.0); Eosinophils % (auto) 2.2 % (0.0-7.0); Hematocrit 37.7 % (36.0-46.0); Lymphocytes # (auto) 2.9 10 ^3/uL (0.4-5.4); Lymphocytes % (auto) 28.6 % (10.0-50.0); Mean Corpuscular Hgb Conc. 33.7 g/dL (32.0-36.0); Mean Corpuscular Volume 86.2 fL (80.0-100.0); Neutrophils # (auto) 6.6 10 ^3/uL (1.6-8.6); Neutrophils % (auto) 64.4 % (37.0-80.0); Platelet Count (auto) 513 10^3/uL (140-450); Red Blood Cells 4.37 10^6/uL (4.0-5.20); Red Cell Distribution Width 13.9 % (11.8-14.3); White Blood Cell 10.3 10^3/uL (4.4-10.8)
[2025-02-16 11:15] LABS: Alanine Aminotransferase 13 U/L (7-40); Albumin 4.6 g/dL (3.2-4.8); Alkaline Phosphatase 95 U/L (46-116); Anion Gap 12 (5-15); Aspartate Aminotransferase 16 U/L (<34); BUN/Creatinine Ratio 26.5 (10.0-20.0); Carbon Dioxide 22 mmol/L (20-31); Chloride 106 mmol/L (98-107); Potassium 4.7 mmol/L (3.5-5.1); Sodium 140 mmol/L (136-145); Total Protein 7.8 g/dL (5.7-8.2)
[2025-02-16 11:15] LABS: Urine Blood TRACE /uL (Negative); Urine Budding Yeast OCCASIONAL /hpf (None Seen); Urine Clarity Clear (Clear); Urine Color Light-Yellow (Yellow); Urine Hyaline Cast FEW /lpf (0 - 2); Urine Mucus FEW (None Seen); Urine Protein, UAD 2+ (Negative); Urine Specific Gravity 1.015 (1.001-1.035); Urine Squamous Epithelial Cell FEW /hpf (<5); Urine Urobilinogen Normal (Negative); Urine WBC 1 /HPF (0-5); Urine pH 5.5 (5.0-9.0)
[2025-02-16 11:16] LABS: Blood Urea Nitrogen 30 mg/dL (9-23); Calcium 10.6 mg/dL (8.7-10.4); Glucose 171 mg/dL (74-106)
[2025-02-16 11:17] LABS: Bilirubin, Total 0.2 mg/dL (0.2-1.0)
[2025-02-16 11:26] LABS: Lactic Acid w/Reflex 2.3 mmol/L (0.4-2.0)
--- NOTE | 2025-02-16 11:46 | DVH ---
CHEST RADIOGRAPH Indication: GEN WEAK, HTN Technique: Single frontal view of the chest was obtained COMPARISON: XY CHEST PORTABLE on DOS: 07/09/23, XY CHEST PORTABLE on DOS: 01/29/23 FINDINGS: Lines and Tubes: None Lungs: Clear Pleura: No effusion. No pneumothorax. Cardiomediastinal contours: Unremarkable Bones: Unremarkable IMPRESSION: No acute disease.
[2025-02-16] MEDS: SODIUM CHLORIDE 0.9% 500 ML IV ONE (12:15)
[2025-02-16] MEDS ORDERED: ACETAMINOPHEN 325 MG TAB PO PRN (16:15)
[2025-02-16] MEDS ORDERED: DEXTROSE (50%) 50ML SYRG IV PRN (16:15)
[2025-02-16] MEDS ORDERED: DOCUSATE SOD 100 MG CAP PO PRN (16:15)
[2025-02-16] MEDS ORDERED: ONDANSETRON HCL 4 MG/2 ML VIAL IV PRN (16:15)
[2025-02-16] MEDS ORDERED: HYDROcodone-ACET 5/325MG TAB PO PRN (16:15)
[2025-02-16] MEDS ORDERED: MORPHINE SULFATE INJ 2 MG/ml SYRG IV PRN (16:45)
[2025-02-16] MEDS ORDERED: NITROGLYCERIN 0.4 MG SL TAB SL PRN (16:45)
--- NOTE | 2025-02-16 16:45 | DVHHP2 ---
History of Present Illness Reason for Visit: Generalized weakness History of Present Illness The patient is a 69-year-old female with past medical history of hyperlipidemia, diabetes mellitus, CVA, and hypertension who presented to [facility] ED with complaint of generalized weakness. Patient reports she has been having generalized weakness for the past 1 month, elevated blood pressure with systolic in the 190s, getting worse that prompted this visit. Patient was seen and evaluated in the ED, laboratory data shows WBC 10.3, platelets 513, sodium 140, potassium 4.7, BUN 30, creatinine 1.13, glucose 171, lactic acid 2.3 trending down to 1.2, troponin 26, blood pressure 114/58, heart rate 72, temperature 98.8 F, O2 saturation 97% on room air. Please see medication orders section in the computer. On my assessment, patient denied chest pain, no headache, no dizziness, no shortness of breath, no diaphoresis, no nausea, no vomiting, no fever, no chills. Patient was admitted for further evaluation and medical management. Past Medical History HTN, DM, Hyperlipidemia, CVA x 1 Past Surgical History Hysterectomy Family History Reviewed, noncontributory to the management of this case. Past Social History The patient lives at home, denies smoking, alcohol or illicit drugs abuse. Review of Systems Constitutional: Yes: Weakness; No: Fever, Chills, Sweats, Malaise, Other Eyes: No: Pain, Vision change, Conjunctivae inflammation, Eyelid inflammation, Other, Redness ENT: No: Ear pain, Ear discharge, Nose pain, Nose discharge, Nose congestion, Mouth pain, Mouth swelling, Throat pain, Throat swelling, Other Respiratory: No: Cough, Dry, Shortness of breath, SOB with excertion, Wheezing, Hemoptysis, Pleuritic Pain, Sputum, Wheezing, Other Cardiovascular: Other (Hypertension); No: Chest Pain, Palpitations, Orthopnea, Paroxysmal Noc. Dyspnea, Edema, Lt Headedness Gastrointestinal: No: Nausea, Vomiting, Abdominal Pain, Diarrhea, Constipation, Melena, Hematochezia, Other Genitourinary: No Dysuria, No Frequency, No Incontinence, No Hematuria, No Retention, No Other Musculoskeletal: No: other, neck pain, shoulder pain, arm pain, back pain, hand pain, leg pain, foot pain Skin: No: Rash, Lesions, Jaundice, Bruising, Other Neurological: No: Weakness, Numbness, Incoordination, Change in speech, Confusion, Seizures, Other Allergies: Coded Allergies: NO KNOWN ALLERGIES (Unverified , 01/30/23) Medications Current Medications Medications Dose Ordered Sig/Juan Route Start Time Stop Time Status Last Admin Dose Admin Aspirin 81 mg DAILY PO 02/17/25 10:00 UNV Atorvastatin Calcium 20 mg HS PO 02/16/25 22:00 UNV Carvedilol 3.125 mg Q12HR PO 02/16/25 22:00 UNV Diagnostic Test (Pha) 1 strip ACHS 02/16/25 17:00 UNV Insulin Human Regular HS SC 02/16/25 22:00 UNV Insulin Human Regular AC SC 02/16/25 17:00 UNV Dextrose 50 ml UD PRN IV 02/16/25 16:15 UNV Sodium Chloride 10 ml Q8HR IV 02/16/25 22:00 UNV Acetaminophen/ Hydrocodone Bitart 1 tab Q4HP PRN PO 02/16/25 16:15 UNV Ondansetron HCl 4 mg Q4HP PRN IV 02/16/25 16:15 UNV Docusate Sodium 100 mg BIDPRN PRN PO 02/16/25 16:15 UNV Acetaminophen 650 mg Q6HP PRN PO 02/16/25 16:15 UNV Exam Vital Signs Vital Signs Date Time Temp Pulse Resp B/P (MAP) Pulse Ox O2 Delivery O2 Flow Rate FiO2 02/16/25 13:54 98.8 71 16 114/58 (76) 96 98.8 02/16/25 10:43 Room Air General Appearance: Alert, Oriented X3, Cooperative, No acute distress HEENT: Atraumatic, PERRLA, EOMI, Mucous membr. moist/pink Respiratory: Clear to auscultation, Normal air movement Cardiovascular: Regular rate, Normal S1, Normal S2, No murmurs Abdominal: Normal bowel sounds, Soft, No tenderness, No hepatospenomegaly, No masses Extremities: No clubbing, No cyanosis, No edema, Normal pulses, No tenderness/swelling Skin: No rashes, No breakdown, No significant lesion Neuro: Normal speech, Normal tone, Sensation intact, Cranial nerves 3-12 NL, Reflexes 2+, Other (Generalized weakness) Psych/Mental Status: Mental status NL, Mood NL Labs/Xrays Labs Test 02/16/25 13:06 02/16/25 11:37 02/16/25 10:30 02/16/25 10:08 Range/Units Lactic Acid Level 1.2 0.4-2.0 mmol/L Troponin I High Sensitivity 27 </=34 ng/L White Blood Count 10.3 4.4-10.8 10^3/uL Red Blood Count 4.37 4.0-5.20 10^6/uL Hemoglobin 12.7 12.2-16.2 g/dL Hematocrit 37.7 36.0-46.0 % Mean Corpuscular Volume 86.2 80.0-100.0 fL Mean Corpuscular Hemoglobin 29.0 28.0-32.0 pg Mean Corpuscular Hemoglobin Concent 33.7 32.0-36.0 g/dL Red Cell Distribution Width 13.9 11.8-14.3 % Platelet Count 513 H 140-450 10^3/uL Mean Platelet Volume 8.0 6.9-10.8 fL Neutrophils (%) (Auto) 64.4 37.0-80.0 % Lymphocytes (%) (Auto) 28.6 10.0-50.0 % Monocytes (%) (Auto) 4.0 0.0-12.0 % Eosinophils (%) (Auto) 2.2 0.0-7.0 % Basophils (%) (Auto) 0.8 0.0-2.0 % Neutrophils # (Auto) 6.6 1.6-8.6 10 ^3/uL Lymphocytes # (Auto) 2.9 0.4-5.4 10 ^3/uL Monocytes # (Auto) 0.4 0-1.3 10 ^3/uL Eosinophils # (Auto) 0.2 0-0.8 10 ^3/uL Basophils # (Auto) 0.1 0-0.2 10 ^3/uL Nucleated Red Blood Cells 0.0 % Sodium Level 140 136-145 mmol/L Potassium Level 4.7 3.5-5.1 mmol/L Chloride Level 106 98-107 mmol/L Carbon Dioxide Level 22 20-31 mmol/L Anion Gap 12 5-15 Blood Urea Nitrogen 30 H 9-23 mg/dL Creatinine 1.13 H 0.550-1.02 mg/dL Glomerular Filtration Rate Calc 52 >90 mL/min BUN/Creatinine Ratio 26.5 H 10.0-20.0 Serum Glucose 171 H 74-106 mg/dL Calcium Level 10.6 H 8.7-10.4 mg/dL Total Bilirubin 0.2 0.2-1.0 mg/dL Aspartate Amino Transferase (AST) 16 <34 U/L Alanine Aminotransferase (ALT) 13 7-40 U/L Alkaline Phosphatase 95 46-116 U/L Total Protein 7.8 5.7-8.2 g/dL Albumin 4.6 3.2-4.8 g/dL Urine Color Light-yellow Yellow Urine Clarity Clear Clear Urine pH 5.5 5.0-9.0 Urine Specific [place] 1.015 1.001-1.035 Urine Protein 2+ H Negative Urine Ketones Negative Negative Urine Blood Trace H Negative /uL Urine Nitrite Negative Negative Urine Bilirubin Negative Negative Urine Urobilinogen Normal Negative mg/dL Urine Leukocyte Esterase Negative Negative /uL Urine RBC None seen 0 - 4 /hpf Urine Microscopic WBC 1 0-5 /HPF Urine Squamous Epithelial Cells Few <5 /hpf Urine Bacteria None seen None Seen /hpf Urine Hyaline Casts Few 0 - 2 /lpf Urine Mucus Few None Seen Urine Yeast (Budding) Occasional None Seen /hpf Urine Glucose Trace Normal mg/dL PATIENT: RICHMOND NOWAK ACCT: [id number] UNIT: [id number] : 1955 LOC: ER ROOM / BED: / AGE / SEX: 69 / F ADM STATUS: REG ER SERVICE 1029 ORDERING PHYSICIAN: HERO BEE DO PROCEDURE(s): CXRP - CHEST PORTABLE REASON: GEN WEAK, HTN ORDER NUMBER(s): [id number], ACCESSION NUMBER(s): [id number] CHEST RADIOGRAPH Indication: GEN WEAK, HTN Technique: Single frontal view of the chest was obtained COMPARISON: XY CHEST PORTABLE on DOS: 07/09/23, XY CHEST PORTABLE on DOS: 01/29/23 FINDINGS: Lines and Tubes: None Lungs: Clear Pleura: No effusion. No pneumothorax. Cardiomediastinal contours: Unremarkable Bones: Unremarkable IMPRESSION: No acute disease. Assessment/Plan Assessment/Plan Poorly-controlled hypertension Hypertension Generalized weakness Diabetes mellitus with hyperglycemia Plan 1. Admit to telemetry unit 2. Breathing treatment 3. Pain control management 4. Management of fluids and electrolytes 5. Consultation for hospitalist 6. Diagnostic tests chest x-ray 7. DVT prophylaxis-on aspirin 8. Repeat labs CBC, CMP in a.m. 9. Continue with current medical management 10. Treatment plan discussed with patient and RN. Patient verbalized understanding. Plan discussed with: Patient, Other (RN) My Orders Orders - APRIL BRUMFIELD DNP Procedure Category Date Status Time Aspirin Tablet PHA 02/17/25 Logged 10:00 Atorvastatin (Lipitor) PHA 02/16/25 Logged 22:00 Carvedilol Tablet PHA 02/16/25 Logged (Coreg Tablet) 22:00 Consistent DIET 02/16/25 Transmitted Carb(Ccho)Diabetes Dinner Glucose Blood PHA 02/16/25 Logged (Accu-Chek Comfort 17:00 Insulin R (Human) PHA 02/16/25 Logged (Insulin R) 22:00 Insulin R (Human) PHA 02/16/25 Logged (Insulin R) 17:00 Dextrose 50% Syringe PHA 02/16/25 Logged 16:15 Allergies ARIANNE 02/16/25 In Process 16:02 Code Status CODE 02/16/25 Transmitted 16:02 Sodium Chloride Lock PHA 02/16/25 Logged (Saline Lock Ns) 22:00 Oxygen Per Hour RT 02/16/25 Transmitted 16:02 Hydrocodone-Acet PHA 02/16/25 Logged 5/325mg Tab (Globe 16:15 Ondansetron Hcl PHA 02/16/25 Logged (Zofran) 16:15 Docusate Sodium PHA 02/16/25 Logged Capsule (Colace 16:15 Fall Risk Precautions ARIANNE 02/16/[address] 16:02 Complete Blood Count LAB 02/17/25 Verified 04:00 Comprehensive LAB 02/17/25 Verified Metabolic Panel 04:00 Condition: Serious ARIANNE 02/16/25 In Process 16:02 Acetaminophen Tablet PHA 02/16/25 Logged (Tylenol Tablet) 16:15 Maintain Bed Rest ARIANNE 02/16/25 In Process 16:02 Sequential ARIANNE 02/16/25 In Process Compression Device Admit ADMIT 02/16/25 Transmitted 16:43 Nitroglycerin PHA 02/16/25 Transmitted Sublingual (Ntrostat 16:45 Morphine Sulfate PHA 02/16/25 Transmitted Injection 16:45 Stat Ekg For Chest ARIANNE 02/16/25 Transmitted Pain 16:43 Notify Md Of Changes ARIANNE 02/16/25 Transmitted From Base 16:43 Automotive Alignment Specialist For [facility] 02/16/25 Transmitted 24 Hours 16:43 Emergency Dysrhythmia [facility] 02/16/25 Transmitted Protocol 16:43 Rhythm Strips Once [facility] 02/16/25 Transmitted Every Shift 16:43 Oxygen By Nasal RT 02/16/25 Transmitted Cannula 16:43 Problem List: (1) Poorly-controlled hypertension (2) Hypertension (3) Generalized weakness (4) Diabetes mellitus with hyperglycemia Date of Service: Feb 16, 2025 Billing Provider: APRIL BRUMFIELD DNP Common Visit Codes: [id number] INP/OBS CARE (HIGH) APRIL BRUMFIELD DNP Feb 16, 2025 16:45
[2025-02-16] MEDS: ACCU-CHEK COMFORT CURVE STRIP VI SCH (19:34)
[2025-02-16] MEDS: amLODIPine BESYLATE 5 MG TAB PO ONE (19:36)
[2025-02-16] MEDS: InsuLIN REG 1unit/0.01ml Soln (100units/ml) SC SCH ×2 (19:39→22:00)
[2025-02-16 19:42] VITALS: O2SAT 96
[2025-02-16 21:56] VITALS: BP 186/85; PULSE 79; RESP 20; TEMP 97.2; O2SAT 96
[2025-02-16] MEDS ORDERED: ASPI81CA PO (21:59)
[2025-02-16] MEDS: SODIUM CHLOR 0.9% PF (SALINE LOCK) 10ML VIAL/SYR IV SCH (22:00)
[2025-02-16] MEDS ORDERED: DAPA1TAB4 PO (22:03)
[2025-02-16] MEDS ORDERED: ISOS1TAB28 PO (22:03)
[2025-02-16] MEDS ORDERED: LOSA-535 PO (22:03)
[2025-02-16] MEDS ORDERED: AMLO1TAB23 PO (22:03)
[2025-02-16] MEDS ORDERED: FINE10TA PO (22:03)
[2025-02-16] MEDS ORDERED: CLON0.1T PO (22:03)
[2025-02-16] MEDS ORDERED: TIRZ2.5I SC (22:05)
[2025-02-16] MEDS ORDERED: GABA-1250 PO (22:06)
[2025-02-16] MEDS: CARVEDILOL 3.125 MG TAB PO SCH (22:58)
[2025-02-16] MEDS: ATORVASTATIN 20 MG TAB PO SCH (22:58)
[2025-02-17] VITALS (8 sets, daily range): BP systolic 164–177; BP diastolic 68–79; PULSE 51–96; RESP 14–21; TEMP 96.9–98.7; O2SAT 95–98
[2025-02-17] MEDS: hydrALAZINE HCL 20 MG/ML VL IV PRN (00:17)
[2025-02-17 06:19] LABS: Basophils # (auto) 0.1 10 ^3/uL (0-0.2); Mean Corpuscular Hgb Conc. 33.6 g/dL (32.0-36.0); Monocytes # (auto) 0.5 10 ^3/uL (0-1.3); Red Cell Distribution Width 14.4 % (11.8-14.3)
[2025-02-17 06:20] LABS: Basophils % (auto) 0.9 % (0.0-2.0); Eosinophils # (auto) 0.3 10 ^3/uL (0-0.8); Eosinophils % (auto) 2.3 % (0.0-7.0); Hematocrit 40.5 % (36.0-46.0); Hemoglobin 13.6 g/dL (12.2-16.2); Lymphocytes # (auto) 2.7 10 ^3/uL (0.4-5.4); Lymphocytes % (auto) 24.3 % (10.0-50.0); Mean Corpuscular Hemoglobin 28.9 pg (28.0-32.0); Mean Corpuscular Volume 86.1 fL (80.0-100.0); Monocytes % (auto) 4.3 % (0.0-12.0); Neutrophils # (auto) 7.7 10 ^3/uL (1.6-8.6); Neutrophils % (auto) 68.2 % (37.0-80.0); Platelet Count (auto) 547 10^3/uL (140-450); Red Blood Cells 4.71 10^6/uL (4.0-5.20); White Blood Cell 11.3 10^3/uL (4.4-10.8)
[2025-02-17 06:39] LABS: Alanine Aminotransferase 10 U/L (7-40); Alkaline Phosphatase 102 U/L (46-116); Anion Gap 12 (5-15); BUN/Creatinine Ratio 18.2 (10.0-20.0); Blood Urea Nitrogen 18 mg/dL (9-23); Calcium 10.1 mg/dL (8.7-10.4); Carbon Dioxide 21 mmol/L (20-31); Chloride 105 mmol/L (98-107); Potassium 4.2 mmol/L (3.5-5.1); Sodium 138 mmol/L (136-145)
[2025-02-17 06:40] LABS: Albumin 4.6 g/dL (3.2-4.8); Aspartate Aminotransferase 19 U/L (<34); Bilirubin, Total 0.4 mg/dL (0.2-1.0); Glucose 168 mg/dL (74-106); Total Protein 8.4 g/dL (5.7-8.2)
[2025-02-17] MEDS: ASPirin 81 mg TAB PO SCH (08:56)
[2025-02-17] MEDS: amLODIPine BESYLATE 5 MG TAB PO SCH (08:56)
[2025-02-17] MEDS ORDERED: ISO60SRT PO (16:19)
--- NOTE | 2025-02-17 18:13 | DVHDS2 ---
Discharge Summary Date of Admission Feb 16, 2025 at 16:43 Date of Discharge: Feb 17, 2025 Admitting Diagnosis Uncontrolled HTN Labs/Diagnostic Data: Laboratory Results Test 02/17/25 16:44 02/17/25 05:51 02/16/25 13:06 02/16/25 11:37 POC Glucose 110 mg/dl (70-106) White Blood Count 11.3 10^3/uL (4.4-10.8) Red Blood Count 4.71 10^6/uL (4.0-5.20) Hemoglobin 13.6 g/dL (12.2-16.2) Hematocrit 40.5 % (36.0-46.0) Mean Corpuscular Volume 86.1 fL (80.0-100.0) Mean Corpuscular Hemoglobin 28.9 pg (28.0-32.0) Mean Corpuscular Hemoglobin Concent 33.6 g/dL (32.0-36.0) Red Cell Distribution Width 14.4 % (11.8-14.3) Platelet Count 547 10^3/uL (140-450) Mean Platelet Volume 7.9 fL (6.9-10.8) Neutrophils (%) (Auto) 68.2 % (37.0-80.0) Lymphocytes (%) (Auto) 24.3 % (10.0-50.0) Monocytes (%) (Auto) 4.3 % (0.0-12.0) Eosinophils (%) (Auto) 2.3 % (0.0-7.0) Basophils (%) (Auto) 0.9 % (0.0-2.0) Neutrophils # (Auto) 7.7 10 ^3/uL (1.6-8.6) Lymphocytes # (Auto) 2.7 10 ^3/uL (0.4-5.4) Monocytes # (Auto) 0.5 10 ^3/uL (0-1.3) Eosinophils # (Auto) 0.3 10 ^3/uL (0-0.8) Basophils # (Auto) 0.1 10 ^3/uL (0-0.2) Nucleated Red Blood Cells 0.0 % Sodium Level 138 mmol/L (136-145) Potassium Level 4.2 mmol/L (3.5-5.1) Chloride Level 105 mmol/L (98-107) Carbon Dioxide Level 21 mmol/L (20-31) Anion Gap 12 (5-15) Blood Urea Nitrogen 18 mg/dL (9-23) Creatinine 0.99 mg/dL (0.550-1.02) Glomerular Filtration Rate Calc 61 mL/min (>90) BUN/Creatinine Ratio 18.2 (10.0-20.0) Serum Glucose 168 mg/dL (74-106) Calcium Level 10.1 mg/dL (8.7-10.4) Total Bilirubin 0.4 mg/dL (0.2-1.0) Aspartate Amino Transferase (AST) 19 U/L (<34) Alanine Aminotransferase (ALT) 10 U/L (7-40) Alkaline Phosphatase 102 U/L (46-116) Total Protein 8.4 g/dL (5.7-8.2) Albumin 4.6 g/dL (3.2-4.8) Lactic Acid Level 1.2 mmol/L (0.4-2.0) Troponin I High Sensitivity 27 ng/L (</=34) Test 02/16/25 10:08 Urine Color Light-yellow (Yellow) Urine Clarity Clear (Clear) Urine pH 5.5 (5.0-9.0) Urine Specific [place] 1.015 (1.001-1.035) Urine Protein 2+ (Negative) Urine Ketones Negative (Negative) Urine Blood Trace /uL (Negative) Urine Nitrite Negative (Negative) Urine Bilirubin Negative (Negative) Urine Urobilinogen Normal mg/dL (Negative) Urine Leukocyte Esterase Negative /uL (Negative) Urine RBC None seen /hpf (0 - 4) Urine Microscopic WBC 1 /HPF (0-5) Urine Squamous Epithelial Cells Few /hpf (<5) Urine Bacteria None seen /hpf (None Seen) Urine Hyaline Casts Few /lpf (0 - 2) Urine Mucus Few (None Seen) Urine Yeast (Budding) Occasional /hpf (None Urine Glucose Trace mg/dL (Normal) Other Laboratory Tests 02/17/25 05:51 Brief Hx & Hospital Course: Patient is a 69 year-old F who presented to the ED with generalized weakness for the past 3-4 months. Patient has a history of uncontrolled HTN and runs with high blood pressure at home. Patient also have a US of the Carotid done in the outpatient setting. I discussed results with the patients daughter at bedside. At this time, patient Uncontrolled HTN is possibly due to rebound effect of Clonidine. Patient will need to see vascular surgery for carotid stenosis as outpatient. Discussed plan in detail with the patients daughter. Patient also needs an MRI of the spine as outpatient. Condition at Discharge: Poor Final Diagnosis/Problems List Uncontrolled HTN Lower back pain- Needs outpatient MRI Discharge Disposition: Home Discharge Instruct/Medications Diet: Cardiac 2g Na,low cholest Activity: Light activity Follow Up/Referral: Dr. Lawrence Gaona Medications: See [facility] Discharge Statement: "Patient was advised to return to the ER or call 911 if any headaches, dizziness, shortness of breath, chest pain, abdominal pain, bleeding, fevers, or worsening of medical condition. Patient was counseled about treatment plan, medications, possible side effects, patientverbalized understanding. All questions were answered to the best of my ability. This discharge took greater then 30 minutes in planning, reviewing documentation, counseling the patient, and discussing with other team members." ASSESSMENT ASSESSMENT Assessment Date of Service: Feb 17, 2025 Billing Provider: BRIDGETTE RESENDEZ MD Common Visit Codes: 27166-[id number]/OBS DISCH DAY >30min BRIDGETTE RESENDEZ MD Feb 17, 2025 18:13
[2025-02-17] MEDS: LOSARTAN POTASSIUM 25 MG TAB PO ONE (20:54)
[2025-02-17] MEDS: hydrALAZINE HCL 25 MG TAB PO ONE (23:16)
[2025-02-18] VITALS (7 sets, daily range): BP systolic 131–167; BP diastolic 64–88; PULSE 79–95; RESP 14–16; TEMP 98–98.4; O2SAT 92–98
[2025-02-18] MEDS ORDERED: IOHEXOL 350 MG/ML 100ML IJ ONE (02:42)
--- NOTE | 2025-02-18 03:44 | DVH ---
Exam: CT CT ANGIO NECK CONTRAST INDICATION: ICA Stenosis EXAM DATE: 02/18/2025 02:49 AM COMPARISON: None TECHNIQUE: CTA neck with intravenous contrast. 3D image postprocessing was performed on a dedicated workstation and images were used for interpretation and reporting. RADIATION DOSE: Angio: CTDIvol: 22.88 mGy, DLP: 639.56 mGy*cm FINDINGS: CTA neck: Atherosclerotic vascular calcifications are present. The visualized thoracic aortic arch and proximal great vessels are otherwise unremarkable. Partially calcified atheromatous plaque throughout the distal left common carotid artery, carotid bul b and origins of the internal and external carotid arteries. Associated stenosis of the origin of the left internal carotid artery by approximately 40%. The left common, internal and external carotid ar teries are otherwise within normal limits. Partially calcified atheromatous plaque throughout the distal right common carotid artery, carotid bu lb and origins of the internal and external carotid arteries. Associated stenosis of the origin of t he right internal carotid artery by approximately 60%. The right common, internal and external caroti d arteries are otherwise within normal limits. Extensive atherosclerotic vascular calcifications of the disc right vertebral artery with suspected a ssociated stenosis up to approximately 40% proximal to the basilar artery. Right vertebral artery dom inant. The cervical segments of the right and left vertebral arteries are otherwise within normal horton its. The limited visualized lung apices are clear. The surrounding soft tissues and osseous structures ar e otherwise unremarkable. IMPRESSION: 1. Moderate hemodynamically significant stenosis of the origins of the bilateral internal carotid art eries measuring approximately 60% on the right and 40% on the left. 2. [id number] hemodynamically significant stenosis of the distal right vertebral artery proxima l to the basilar artery. Right vertebral artery dominance. CAROTID STENOSIS REFERENCE Distal internal carotid artery diameter as the denominator for stenosis measurement: MILD = <50% stenosis. MODERATE = 50-69% stenosis. SEVERE = 70-89% stenosis. CRITICAL = 90-99% stenosis. OCCLUDED = 100% stenosis.
--- NOTE | 2025-02-18 11:10 | DVH ---
PROCEDURE: MRI LUMBAR SPINE WO CONTRAST INDICATION: Stenosis Exam Date: 02/18/2025 10:12 AM COMPARISON: None TECHNIQUE: MRI lumbar spine without intravenous contrast. FINDINGS: Dextroscoliosis. There are degenerative endplate changes including modic endplate changes with ante rior and lateral osteophytes throughout the lumbar spine. The visualized distal spinal cord and conus medullaris are within normal limits. The conus medullaris appears to terminate within normal limits . The visualized retroperitoneal and paraspinal soft tissues are unremarkable. The following axial levels are detailed below: T12-L1: Unremarkable. L1-L2: There is a severe circumferential disc bulge complicated by facet arthropathy narrowing the central canal to 9 mm with associated moderate to severe right neuroforaminal stenosis. L2-L3: There is a moderate circumferential disc bulge complicated by facet arthropathy associated w ith mild to moderate bilateral neuroforaminal stenosis. No significant central canal stenosis. L3-L4: There is a moderate circumferential disc bulge complicated by facet arthropathy associated w ith mild to moderate bilateral neuroforaminal stenosis. No significant central canal stenosis. L4-L5: There is a severe circumferential disc bulge complicated by facet arthropathy narrowing the central canal to 5 mm with associated moderate to severe bilateral neuroforaminal stenosis. L5-S1: There is a moderate circumferential disc bulge complicated by facet arthropathy associated wi th mild to moderate bilateral neuroforaminal stenosis. No significant central canal stenosis. IMPRESSION: 1. Multilevel degenerative disease. Severe central canal stenosis L4-5. Mild central canal stenosis L 1-2. Neural foraminal stenosis as above. HS:Y
[2025-02-18] MEDS: CARVEDILOL 3.125 MG TAB PO ONE (12:00)
[2025-02-18] MEDS: amLODIPine BESYLATE 5 MG TAB PO ONE (12:00)
[2025-02-18] MEDS: LOSARTAN POTASSIUM 25 MG TAB PO SCH (12:01)
--- NOTE | 2025-02-18 15:08 | DVHPN2 ---
Subjective Seen and examined at bedside, discussed MRI and CTA results with the patients daughter. Gave a copy of imaging reports. Needs outpatient PT. Changes from previous H/P or p: No Changes Eyes: No Pain, No Vision change, No Conjunctivae inflammation, No Eyelid inflammation, No Other, No Redness ENT: No Ear pain, No Ear discharge, No Nose pain, No Nose discharge, No Nose congestion, No Mouth pain, No Mouth swelling, No Throat pain, No Throat swelling, No Other Cardiovascular: No Chest Pain, No Palpitations, No Orthopnea, No Paroxysmal Noc. Dyspnea, No Edema, No Lt Headedness; Other (Hypertension) Respiratory: No Cough, No Dry, No Shortness of breath, No SOB with excertion, No Wheezing, No Hemoptysis, No Pleuritic Pain, No Sputum, No Other Gastrointestinal: No Nausea, No Vomiting, No Abdominal Pain, No Diarrhea, No Constipation, No Melena, No Hematochezia, No Other Genitourinary: No Dysuria, No Frequency, No Incontinence, No Hematuria, No Retention, No Other Musculoskeletal: No other, No neck pain, No shoulder pain, No arm pain, No back pain, No hand pain, No leg pain, No foot pain Skin: No Rash, No Lesions, No Jaundice, No Bruising, No Other Objective Vitals Vital Signs Date Time Temp Pulse Resp B/P (MAP) Pulse Ox O2 Delivery O2 Flow Rate FiO2 02/18/25 12:48 98.2 79 16 131/76 (94) 92 98.2 02/18/25 08:00 Room Air* 0 21 Intake/Output Intake and Output 02/18/25 07:00 Intake Total 2320 ml Balance 2320 ml Intake Oral 2320 ml # Voids 5 General Appearance: Alert, Oriented X3, Cooperative, No acute distress Lungs: Clear to auscultation Cardiovascular: Regular rate, Normal S1, Normal S2 Abdomen: Normal bowel sounds, Soft Psych/Mental Status: Mental status NL Medications Current Medications Medications Dose Ordered Sig/Juan Route Start Time Stop Time Status Last Admin Dose Admin Aspirin 81 mg DAILY PO 02/17/25 10:00 02/18/25 09:21 81 MG Atorvastatin Calcium 20 mg HS PO 02/16/25 22:00 02/17/25 20:55 20 MG Diagnostic Test (Pha) 1 strip ACHS 02/16/25 17:00 02/18/25 11:59 1 STRIP Insulin Human Regular HS SC 02/16/25 22:00 Insulin Human Regular AC SC 02/16/25 17:00 02/18/25 11:59 3 UNITS Dextrose 50 ml UD PRN IV 02/16/25 16:15 Sodium Chloride 10 ml Q8HR IV 02/16/25 22:00 02/18/25 12:01 10 ML Acetaminophen/ Hydrocodone Bitart 1 tab Q4HP PRN PO 02/16/25 16:15 Ondansetron HCl 4 mg Q4HP PRN IV 02/16/25 16:15 Docusate Sodium 100 mg BIDPRN PRN PO 02/16/25 16:15 Acetaminophen 650 mg Q6HP PRN PO 02/16/25 16:15 Nitroglycerin 0.4 mg Q5MINP PRN SL 02/16/25 16:45 Morphine Sulfate 2 mg Q30M PRN IV 02/16/25 16:45 Hydralazine HCl 10 mg Q6HP PRN IV 02/16/25 19:00 02/17/25 16:12 10 MG Amlodipine Besylate 10 mg DAILY PO 02/19/25 10:00 Carvedilol 12.5 mg Q12HR PO 02/18/25 22:00 Losartan Potassium 25 mg DAILY PO 02/18/25 10:00 02/18/25 12:01 25 MG Laboratory Results Laboratory Tests 02/17/25 05:51 Urinalysis Test 02/16/25 10:08 Urine Color Light-yellow (Yellow) Urine Clarity Clear (Clear) Urine pH 5.5 (5.0-9.0) Urine Specific [place] 1.015 (1.001-1.035) Urine Protein 2+ (Negative) H Urine Ketones Negative (Negative) Urine Blood Trace /uL (Negative) H Urine Nitrite Negative (Negative) Urine Bilirubin Negative (Negative) Urine Urobilinogen Normal mg/dL (Negative) Urine Leukocyte Esterase Negative /uL (Negative) Urine RBC None seen /hpf (0 - 4) Urine Microscopic WBC 1 /HPF (0-5) Urine Squamous Epithelial Cells Few /hpf (<5) Urine Bacteria None seen /hpf (None Seen) Urine Hyaline Casts Few /lpf (0 - 2) Urine Mucus Few (None Seen) Urine Yeast (Budding) Occasional /hpf (None Urine Glucose Trace mg/dL (Normal) Assessment/Plan Assessment/Plan Uncontrolled HTN Lower back pain- Needs outpatient PT R ICA Stenosis- Outpatient vascular Plan discussed with: Patient My Orders Orders - BRIDGETTE RESENDEZ MD Procedure Category Date Status Time Ct Angio Neck Contrast CT 02/17/25 Resulted 16:20 Pls Schedule Appt MEMBERSERV 02/17/25 Transmitted With Dvmgpcp 16:21 Carvedilol Tablet PHA 02/18/25 In Process (Coreg Tablet) 22:00 Lumbar Spine Wo MRI 02/18/25 Resulted Contrast 09:27 Losartan Tablet PHA 02/18/25 In Process (Cozaar Tablet) 10:00 Consult CONS 02/18/25 Transmitted Vascular/Endovascular 09:28 Amlodipine Tablet PHA 02/19/25 In Process (Norvasc Tablet) 10:00 Discharge DISCHARGE 02/18/25 Transmitted 14:11 Date of Service: Feb 18, 2025 Billing Provider: BRIDGETTE RESENDEZ MD Common Visit Codes: [id number] INP/OBS CARE(MOD) BRIDGETTE RESENDEZ MD Feb 18, 2025 15:08
[2025-02-18] MEDS ORDERED: CARVEDILOL 3.125 MG TAB PO SCH (22:00)
[2025-02-19] MEDS ORDERED: amLODIPine BESYLATE 5 MG TAB PO SCH (10:00)
== END 2025-02-18 17:10 | disposition home or self-care (01) | DRG 639 ==
LOC: ER 09:50 → OVERFLOW 16:43 → TELE-WESTW 16:48
PROVIDERS: ADMIT Internal Medicine; ATTEND Internal Medicine
DX: E11.65 Type 2 diabetes mellitus with hyperglycemia (principal); I10 Essential (primary) hypertension; E78.5 Hyperlipidemia, unspecified; R94.31 Abnormal electrocardiogram [ECG] [EKG]; M54.50 Low back pain, unspecified; Z90.710 Acquired absence of both cervix and uterus; Z86.73 Personal history of transient ischemic attack (TIA), and cerebral infarction without residual deficits
CPT/HCPCS: 36415; 70498; 71045; 72148; 80053; 81001; 82962; 83605; 84484; 85025; 93005; G0378; J1815

== ENCOUNTER 2025-05-05 09:29 | Outpatient (CLI) | payer OTHER ==
[~2025-05-05 09:29] MED LIST changes: +AMLO1TAB23 PO; -ASPI-325 PO; +ASPI81CA PO; +DAPA1TAB4 PO; -ERGO1CAP23 PO; +FINE10TA PO; +ISO60SRT PO; -LOSA-534 PO; +LOSA-535 PO; -RANO500T3 PO; +TIRZ2.5I SC
[2025-05-05 11:02] LABS: Anion Gap 11 (5-15); Calcium 10.0 mg/dL (8.7-10.4); Carbon Dioxide 25 mmol/L (20-31); Chloride 104 mmol/L (98-107); Potassium 4.4 mmol/L (3.5-5.1); Sodium 140 mmol/L (136-145)
[2025-05-05 11:08] LABS: BUN/Creatinine Ratio 19.3 (10.0-20.0); Blood Urea Nitrogen 22 mg/dL (9-23); Glucose 121 mg/dL (74-106)
[2025-05-05 11:14] LABS: Microalb/Creat Ratio, Urine 1147.0
== END 2025-05-05 17:00 | disposition home or self-care (01) ==
LOC: LAB 09:29
PROVIDERS: ATTEND Internal Medicine
DX: E11.9 Type 2 diabetes mellitus without complications (principal)
CPT/HCPCS: 36415; 80048; 82043; 82570

== ENCOUNTER 2025-06-25 13:58 | Emergency (ER) | payer OTHER ==
[~2025-06-25] VITALS: Ht 165.1 cm; Wt 59.7 kg
--- NOTE | 2025-06-25 14:19 | ED.PDOC ---
HPI (NEURO) HPI Comments This is a 69 year old female presenting to the ED with chief complaint of headache. Patient reports that she has been experiencing a left sided occipital headache with associated imbalance since a week ago. Patient relays that she is unable to walk without a walker due to being imbalanced. Patient denies any N/V, chest pain, SOB, dizziness, fever, or chills. Chief Complaint: Headache Time Seen by MD: 14:17 Primary Care Provider: TADEO Hood Notes: Nurses Notes, Medications, Allergies Information Source: Patient, Spouse Mode of Arrival: Ambulatory Severity: Moderate Headache Severity: Moderate Timing: Weeks Duration: Since onset Prehospital treatment: None Headache Quality: Aching Headache Location: Occipital Onset: At rest Circumstances: Spontaneous Symptoms: Imbalance Associated Signs and Symptoms: Headache Past Medical History PAST MEDICAL HISTORY: CVA, DM, HTN Surgical History: Hysterectomy, Denies all surgeries UTILIZATION REVIEW SPECIALIST History: Denies all UTILIZATION REVIEW SPECIALIST Hx Family History Family History: Reviewed,noncontributory to illness Social History Smoker: Non-Smoker Alcohol: Denies ETOH Use Drugs: Denies Drug Use Lives In: Home Constitutional: denies: chills, diaphoresis, fatigue, fever, malaise, sweats, weakness, others EENTM: denies: blurred vision, double vision, ear bleeding, ear discharge, ear drainage, ear pain, ear ringing, eye pain, eye redness, hearing loss, mouth pain, mouth swelling, nasal discharge, nose bleeding, nose congestion, nose pain, photophobia, tearing, throat pain, throat swelling, voice changes, others Respiratory: denies: cough, hemoptysis, orthopnea, SOB at rest, shortness of breath, SOB with excertion, stridor, wheezing, others Cardiovascular: denies: chest pain, dizzy spells, diaphoresis, Dyspnea on exertion, edema, irregular heart beat, left arm pain, lightheadedness, palpitations, PND, syncope, others Gastrointestinal: denies: abdomen distended, abdominal pain, blood streaked bowels, constipated, diarrhea, dysphagia, difficulty swallowing, hematemesis, melena, nausea, poor appetite, poor fluid intake, rectal bleeding, rectal pain, vomiting, others Genitourinary: denies: abnormal vagina bleeding, burning, dyspareunia, dysuria, flank pain, frequency, hematuria, incontinence, pain, , vagina discharge, urgency, others Neurological: reports: headache, others (Imbalance); denies: dizziness, fainting, left sided numbness, left sided weakness, numbness, paresthesia, pre- existing deficit, right sided numbness, right sided weakness, seizure, speech problems, tingling, tremors, weakness Musculoskeletal: denies: back pain, gout, joint pain, joint swelling, muscle pain, muscle stiffness, neck pain, others Integumetry: denies: bruises, change in color, change in hair/nails, dryness, laceration, lesions, lumps, rash, wounds, others Allergic/Immunocompromised: denies: Difficulty Healing, Frequent Infections, Hives, Itching, others Hematologic/Lymphatic: denies: anemia, blood clots, easy bleeding, easy bruising, swollen glands, others Endocrine: denies: excessive hunger, excessive sweating, excessive thirst, excessive urination, flushing, intolerance to cold, intolerance to heat, un explained weight gain, unexplained weight loss, others Psychiatric: denies: anxiety, bipolar disorder, depression, hopeless, panic disorder, schizophrenia, sleepless, suicidal, others All Other Systems: Reviewed and Negative Physical Exam General Appearance: Moderate Distress, Normal HEENT: Normal ENT Inspection, Pharynx Normal, TMs Normal Neck: Full Range of Motion, Non-Tender, Normal, Normal Inspection Respiratory: Chest Non-Tender, Lungs Clear, No Accessory Muscle Use, No Respiratory Distress, Normal Breath Sounds Cardiovascular: No Edema, No JVD, No Murmur, No Gallop, Normal Peripheral Pulse s, Regular Rate/Rhythm Breast Exam: Deferred Gastrointestinal: No Organomegaly, Non Tender, No Pulsatile Mass, Normal Bowel Sounds, Soft Genitalia: Deferred Pelvic: Deferred Rectal: Deferred Extremities: No calf tenderness, Normal capillary refill, Normal inspection, Normal range of motion, Non-tender, No pedal edema Musculoskeletal : Apperance: Normal Neurologic: Alert, plastic panel installer II-XII nml as Tested, No Motor Deficits, Normal Affect, Normal Mood, No Sensory Deficits Cerebellar Function: Normal Reflexes: Normal Skin: Dry, Normal Color, Warm Peripheral Pulses: 3+ Radial (R), 3+ Radial (L) Lymphatic: No Adenopathy Was a procedure done? Was a procedure done?: No Differential Diagnosis (SZ) Seizure: Psychogenic Seizure, Closed Head Injury, CVA/TIA X-Ray, Labs, Meds, VS Vital Signs Date Time Temp Pulse Resp B/P (MAP) Pulse Ox O2 Delivery O2 Flow Rate FiO2 06/25/25 13:59 98.1 84 18 179/86 97 98.1 Lab Test 06/25/25 14:36 06/25/25 14:11 Range/Units White Blood Count 10.9 H 4.4-10.8 10^3/uL Red Blood Count 3.81 L 4.0-5.20 10^6/uL Hemoglobin 11.4 L 12.2-16.2 g/dL Hematocrit 34.6 L 36.0-46.0 % Mean Corpuscular Volume 90.9 80.0-100.0 fL Mean Corpuscular Hemoglobin 29.8 28.0-32.0 pg Mean Corpuscular Hemoglobin Concent 32.8 32.0-36.0 g/dL Red Cell Distribution Width 14.1 11.8-14.3 % Platelet Count 444 140-450 10^3/uL Mean Platelet Volume 8.2 6.9-10.8 fL Neutrophils (%) (Auto) 64.2 37.0-80.0 % Lymphocytes (%) (Auto) 28.1 10.0-50.0 % Monocytes (%) (Auto) 5.2 0.0-12.0 % Eosinophils (%) (Auto) 1.9 0.0-7.0 % Basophils (%) (Auto) 0.6 0.0-2.0 % Neutrophils # (Auto) 7.0 1.6-8.6 10 ^3/uL Lymphocytes # (Auto) 3.1 0.4-5.4 10 ^3/uL Monocytes # (Auto) 0.6 0-1.3 10 ^3/uL Eosinophils # (Auto) 0.2 0-0.8 10 ^3/uL Basophils # (Auto) 0.1 0-0.2 10 ^3/uL Nucleated Red Blood Cells 0.1 % Sodium Level 137 136-145 mmol/L Potassium Level 3.9 3.5-5.1 mmol/L Chloride Level 104 98-107 mmol/L Carbon Dioxide Level 24 20-31 mmol/L Anion Gap 9 5-15 Blood Urea Nitrogen 19 9-23 mg/dL Creatinine 1.27 H 0.550-1.02 mg/dL Glomerular Filtration Rate Calc 45 >90 mL/min BUN/Creatinine Ratio 15.0 10.0-20.0 Serum Glucose 137 H 74-106 mg/dL Calcium Level 9.5 8.7-10.4 mg/dL POC Glucose 150 H 70-106 mg/dl Patient alert. Vitals stable. Uses a walker to assist her ambulation. Answering questions. Blood pressure elevated. Saturation pristine on room air. Significant other does state that she has difficulty ambulating without the walker. Chronic condition. CT of the head reviewed does not show any acute changes. Possible urinary tract infection. Was given prescription of Keflex antibiotic. Explained to the patient. Continue to monitor. Was told to follow up with her primary care physician. Was told to come back if there is any problem. [place] [id number] Ph: [phone] DIAGNOSTIC IMAGING Diagnostic Imaging Report : [id number] Signed PATIENT: RICHMOND NOWAK ACCT: [id number] UNIT: [id number] : 1955 LOC: ER ROOM / BED: / AGE / SEX: 69 / F ADM STATUS: REG ER SERVICE 1418 ORDERING PHYSICIAN: DELMA VERGARA MD PROCEDURE(s): HWOCT - HEAD WITHOUT CONTRAST REASON: tia ORDER NUMBER(s): [id number], ACCESSION NUMBER(s): [id number] CLINICAL HISTORY: tia TECHNIQUE: Helical scanning was performed of the head from the skull base to the vertex. Multiplanar reconstructions were performed. This exam was performed according to our departmental dose optimization program. Up-to-date CT equipment and radiation dose reduction techniques are utilized as appropriate. CTDI 53 DLP 966 COMPARISON: CT HEAD WITHOUT CONTRAST on DOS: 06/10/24, MRI MRA ANGIO HEAD BRAIN on DOS: 07/10/23, MRI BRAIN HEAD WO CONTRAST on DOS: 07/10/23, CT HEAD WITHOUT CONTRAST on DOS: 07/09/23 FINDINGS: There is no evidence for acute intracranial hemorrhage, acute ischemic changes, mass, mass effect, or extra-axial fluid collection. There is no hydrocephalus or midline shift. There is no effacement of the cerebral sulci and basal subarachnoid cisterns. The salazar-white matter differentiation is well maintained. The imaged paranasal sinuses are clear. IMPRESSION: NO ACUTE INTRACRANIAL ABNORMALITY SEEN. ATED BY: ONEL MENA MD DICTATED DATE/TIME: 06/25/251453 SIGNED BY: ONEL MENA MD SIGNED DATE/TIME: 06/25/251453 CC: Images Reviewed?: Images reviewed and evaluated by me Time of 1ST Reevaluation: 15:16 Reevaluation 1ST: Unchanged Patient Education/Counseling: Diagnosis, Treatment Family Education/Counseling: Diagnosis, Treatment Departure 1 Departure Time of Disposition: 14:20 Impression: Primary Impression: Autonomic disorder Disposition: 01 HOME / SELF CARE / HOMELESS Condition: Good e-Prescriptions Cephalexin (KEFLEX CAPSULE) 250 Mg Cp 250 MG PO QID for 5 Days, #20 BOTTLE Prov: DELMA VERGARA MD 06/25/25 Discharged With: Self Critical Care Note Critical Care Time?: No Stability Stability form required: No Heart Score Heart Score: Heart Score Response (Comments) Value History N/A 0 EKG N/A 0 Age N/A 0 Risk Factors N/A 0 Troponin N/A 0 Total 0 I personally scribed for DELMA VERGARA MD ([email or web address]) on 06/25/25 at 14:19. Electronically submitted by Poncho Lee ([email or web address]). I personally scribed for DELMA VERGARA MD ([email or web address]) on 06/25/25 at 15:42. Electronically submitted by Poncho Lee ([email or web address]). DELMA VERGARA MD Jun 25, 2025 14:19
[2025-06-25 14:57] LABS: Hematocrit 34.6 % (36.0-46.0); Hemoglobin 11.4 g/dL (12.2-16.2); Mean Corpuscular Hemoglobin 29.8 pg (28.0-32.0); Mean Corpuscular Volume 90.9 fL (80.0-100.0); Nucleated Red Blood Cells % 0.1 %
--- NOTE | 2025-06-25 14:57 | DVH ---
CLINICAL HISTORY: tia TECHNIQUE: Helical scanning was performed of the head from the skull base to the vertex. Multiplanar reconstructions were performed. This exam was performed according to our departmental dose optimizat ion program. Up-to-date CT equipment and radiation dose reduction techniques are utilized as appropri ate. CTDI 53 DLP 966 COMPARISON: CT HEAD WITHOUT CONTRAST on DOS: 06/10/24, MRI MRA ANGIO HEAD BRAIN on DOS: 07/10/23, MRI B RAIN HEAD WO CONTRAST on DOS: 07/10/23, CT HEAD WITHOUT CONTRAST on DOS: 07/09/23 FINDINGS: There is no evidence for acute intracranial hemorrhage, acute ischemic changes, mass, mass effect, or extra-axial fluid collection. There is no hydrocephalus or midline shift. There is no effacement of the cerebral sulci and basal subarachnoid cisterns. The salazar-white matter differentiation is well kelly ntained. The imaged paranasal sinuses are clear. IMPRESSION: NO ACUTE INTRACRANIAL ABNORMALITY SEEN.
[2025-06-25 15:01] LABS: Chloride 104 mmol/L (98-107); Potassium 3.9 mmol/L (3.5-5.1); Sodium 137 mmol/L (136-145)
[2025-06-25 15:02] LABS: Anion Gap 9 (5-15); Carbon Dioxide 24 mmol/L (20-31)
[2025-06-25 15:03] LABS: Calcium 9.5 mg/dL (8.7-10.4)
[2025-06-25 15:07] LABS: BUN/Creatinine Ratio 15.0 (10.0-20.0); Blood Urea Nitrogen 19 mg/dL (9-23)
[2025-06-25 15:09] LABS: Glucose 137 mg/dL (74-106)
[2025-06-25] MEDS ORDERED: CEPH250C PO (16:10)
[2025-06-25 16:11] VITALS: BP 160/71; PULSE 73; RESP 12; TEMP 98; O2SAT 97
== END 2025-06-25 16:11 | disposition home or self-care (01) ==
LOC: ER 13:58
DX: G90.9 Disorder of the autonomic nervous system, unspecified (principal); E11.9 Type 2 diabetes mellitus without complications; I10 Essential (primary) hypertension; Z86.73 Personal history of transient ischemic attack (TIA), and cerebral infarction without residual deficits; Z90.710 Acquired absence of both cervix and uterus
CPT/HCPCS: 36415; 70450; 80048; 82947; 82962; 85025

== ENCOUNTER 2025-08-12 12:46 | Outpatient (CLI) | payer OTHER ==
[~2025-08-12 12:46] MED LIST changes: +CEPH250C PO
== END 2025-08-12 17:00 | disposition home or self-care (01) ==
LOC: XYW 12:46
PROVIDERS: ATTEND Internal Medicine
DX: I25.10 Atherosclerotic heart disease of native coronary artery without angina pectoris (principal)
CPT/HCPCS: 93306